=== PATIENT | female | born 1980 | race Caucasian/White ===

== ENCOUNTER 2016-11-19 06:16 | Inpatient (IN) | payer MEDICAID, OTHER ==
[~2016-11-19] VITALS: Ht 170.2 cm; Wt 68.1 kg
[2016-11-19] VITALS (9 sets, daily range): BP systolic 102–125; BP diastolic 56–66; PULSE 75–116; RESP 16–26; TEMP 97.9–99; O2SAT 94–99
[~2016-11-19 06:16] MED LIST: ACAR50TA PO; ATOR40TA16 PO; BLOO1KIT49; INSULIN SYRINGE1 M10 SQ; LEVEMIR SQ; METF1000 PO; ONETTES4; PANT20 PO; SERT-132 PO
--- NOTE | 2016-11-19 06:30 | PD ---
HPI Chief Complaint: Respiratory Symptoms Time Seen by Provider: 06:29 Travel History International Travel<30 days: No Contact w/Intl Traveler<30days: No Traveled to known affect area: No History of Present Illness HPI 36-year-old female came to the emergency room with history of cough, chest pain , shortness of breath for past 2 weeks. Patient says that initially she thought it was a head cold but has not gotten better. Now it hurts to cough. She points to her entire chest. Pain is worse when she coughs or takes a deep breath. Patient was tachycardic and oxygen saturation was in mid 90s. She has history of asthma and history of diabetes. Patient said that her sugar this morning was 400. PFSH Past Medical History Narrative Medical List of her past medical, surgical, social and family history as reviewed from the nursing note. Asthma: Yes Diabetes: Yes Diminished Hearing: No Gastrointestinal Disorders: Yes (HEMMORRHOIDS) Headaches: Yes Respiratory: Yes (ASTHMA) Migraines: Yes : 4 Para: 4 Tubal Ligation: Yes Social History Alcohol Use: Yes Tobacco Use: Yes (3-4 CIGS/DAY) Substance Use: No Allergies-Medications (Allergen,Severity, Reaction): Coded Allergies: No Known Allergies (Verified , 11/19/16) Comments No known drug allergies. Reported Meds & Prescriptions Reported Meds & Active Scripts Active Ventolin Hfa 18 GM Inh (Albuterol Sulfate) 90 Mcg/Act Aer 2 Puff INH Q4H PRN Onetouch Ultra Test Strips (Blood Glucose Test Strips) 1 [place] Alexandria 1 Box .ROUTE TID Insulin Syringe/0.5ML/30G 30G X 1/2" 0.5 ml (Insulin Syringe/Needle U-100) 1 Mis Mis 1 Box SQ DIRECTED Atorvastatin (Atorvastatin Calcium) 40 Mg Tab 40 Mg PO HS Sertraline (Sertraline HCl) 50 Mg Tab 100 Mg PO BID Acarbose 50 Mg Tab 100 Mg PO TIDAC Take with first bite of meal. Metformin (Metformin HCl) 1,000 Mg Tab 1,000 Mg PO BIDPC With meals Blood Glucose System Adi (Blood Glucose Monitoring Suppl) 1 Kit Kit Kit Please provide brand as patients insurance allows Reported Levemir Inj (Insulin Detemir) 1,000 unit/ 10 ML Vial 40 Units SQ AM Do not mix with any other Insulin. Protonix (Pantoprazole Sodium) 20 Mg Tab 40 Mg PO DAILY Narrative Medication List of home medications reviewed from the nursing note. Review of Systems Except as stated in HPI: all other systems reviewed are Neg Physical Exam Narrative GENERAL: Awake, alert, moderate distress, anxious SKIN: Focused skin assessment warm/dry. Multiple scabs on bilateral upper extremity HEAD: Atraumatic. Normocephalic. EYES: Pupils equal and round. No scleral icterus. No injection or drainage. ENT: No nasal bleeding or discharge. Mucous membranes pink and moist. NECK: Trachea midline. No JVD. CARDIOVASCULAR: Regular rate and rhythm. Tachycardia. No murmur appreciated. RESPIRATORY: No accessory muscle use. Clear to auscultation. Breath sounds equal bilaterally. Tachypnea GASTROINTESTINAL: Abdomen soft, non-tender, nondistended. Hepatic and splenic margins not palpable. MUSCULOSKELETAL: No obvious deformities. No clubbing. No cyanosis. No edema. NEUROLOGICAL: Awake and alert. No obvious cranial nerve deficits. Motor grossly within normal limits. Normal speech. PSYCHIATRIC: Appropriate mood and affect; insight and judgment normal. Data Data Last Documented VS Vital Signs Date Time Temp Pulse Resp B/P Pulse Ox O2 Delivery O2 Flow Rate FiO2 11/19/16 09:05 98 16 102/58 94 Nasal Cannula 2 11/19/16 06:38 94 11/19/16 06:17 99.0 Orders Complete Blood Count With Diff (11/19/16 06:32) Basic Metabolic Panel (Bmp) (11/19/16 06:32) D-Dimer (11/19/16 06:32) Influenzae A/B Antigen (11/19/16 06:32) Blood Culture (11/19/16 06:32) Iv Access Insert/Monitor (11/19/16 06:32) Ecg Monitoring (11/19/16 06:32) Oximetry (11/19/16 06:32) Oxygen Administration (11/19/16 06:32) Chest, Single Ap (11/19/16 06:32) Sodium Chloride 0.9% Flush (Ns Flush) (11/19/16 06:45) Albuterol Neb (Albuterol Neb) (11/19/16 06:45) Ketorolac Inj (Toradol Inj) (11/19/16 06:45) Sodium Chlor 0.9% 1000 Ml Inj (Ns 1000 M (11/19/16 06:45) Insulin Human Regular Inj (Novolin R Inj (11/19/16 06:45) B-Type Natriuretic Peptide (11/19/16 07:06) Electrocardiogram (11/19/16 ) Sodium Chlor 0.9% 1000 Ml Inj (Ns 1000 M (11/19/16 09:00) Ceftriaxone Inj (Rocephin Inj) (11/19/16 09:45) Azithromycin Inj (Zithromax Inj) (11/19/16 09:45) Albuterol-Ipratropium Neb (Duoneb Neb) (11/19/16 10:30) Methylprednisolone So Succ Inj (Solumedr (11/19/16 10:30) Lactic Acid (11/19/16 10:32) Sodium Chlor 0.9% 1000 Ml Inj (Ns 1000 M (11/19/16 10:45) Admit Order (Ed Use Only) (11/19/16 10:40) Labs Laboratory Tests Test 11/19/16 06:45 White Blood Count 16.9 TH/MM3 Red Blood Count 4.02 MIL/MM3 Hemoglobin 9.8 GM/DL Hematocrit 31.3 % Mean Corpuscular Volume 77.9 FL Mean Corpuscular Hemoglobin 24.5 PG Mean Corpuscular Hemoglobin 31.4 % Concent Red Cell Distribution Width 17.1 % Platelet Count 438 TH/MM3 Mean Platelet Volume 6.7 FL Neutrophils (%) (Auto) 85.5 % Lymphocytes (%) (Auto) 6.3 % Monocytes (%) (Auto) 6.2 % Eosinophils (%) (Auto) 1.6 % Basophils (%) (Auto) 0.4 % Neutrophils # (Auto) 14.5 TH/MM3 Lymphocytes # (Auto) 1.1 TH/MM3 Monocytes # (Auto) 1.0 TH/MM3 Eosinophils # (Auto) 0.3 TH/MM3 Basophils # (Auto) 0.1 TH/MM3 CBC Comment AUTO DIFF Differential Comment AUTO DIFF CONFIRMED Platelet Estimate NORMAL Platelet Morphology Comment NORMAL D-Dimer Quantitative (PE/DVT) 0.48 MG/L FEU Sodium Level 135 MEQ/L Potassium Level 3.3 MEQ/L Chloride Level 101 MEQ/L Carbon Dioxide Level 23.6 MEQ/L Anion Gap 10 MEQ/L Blood Urea Nitrogen 5 MG/DL Creatinine 0.79 MG/DL Estimat Glomerular Filtration 82 ML/MIN Rate Random Glucose 370 MG/DL Calcium Level 8.8 MG/DL B-Type Natriuretic Peptide 46 PG/ML MDM Medical Decision Making Medical Screen Exam Complete: Yes Emergency Medical Condition: Yes Medical Record Reviewed: Yes Differential Diagnosis Pneumonia, PE, bronchitis, asthma exacerbation Narrative Course 6:38 AM awaiting for the blood test and the chest x-ray. I've ordered 2 albuterol nebulizers. Patient was also given 10 units of insulin subcutaneous. Case will be signed over to the oncoming ER physician. Patient was given Toradol for pain. Procedures EKG Prior to Arrival: No Scripts Albuterol 18 GM Inh (Ventolin Hfa 18 GM Inh)90 Mcg/Act Aer2 Puff INH Q4H PRN ( SHORTNESS OF BREATH) #1 INHALER Ref 0 Prov:Abiodun Gannon MD 11/19/16 Roni Horta MD Nov 19, 2016 06:30
[2016-11-19] MEDS ORDERED: SODIUM CHLOR 0.9% 1000 ML INJ 1,000 ML IV ONE ×3 (06:45→10:45)
[2016-11-19] MEDS ORDERED: INSULIN HUMAN REGULAR 1,000 UNITS/10 ML VIAL SQ ONE (06:45)
[2016-11-19] MEDS ORDERED: KETOROLAC TROMETHAMINE 30 MG/ML (IVP) VIAL IV PUSH ONE (06:45)
[2016-11-19] MEDS ORDERED: LEVEMIR SQ (06:46)
--- NOTE | 2016-11-19 07:00 | RADRPT ---
EXAM DATE/TIME: 11/19/2016 06:52 [facility] COMPARISON: No previous studies available for comparison. INDICATIONS : Shortness of breath. MEDICAL HISTORY : None. SURGICAL HISTORY : None. ENCOUNTER: Initial ACUITY: 1 day PAIN SCORE: 0/10 LOCATION: Bilateral chest FINDINGS: Mild interstitial opacities are seen of both mid and lower lungs. Very small, bilateral pleural effus ions are possible. No confluent or dense consolidation seen. No pneumothorax. Heart size upper limits of normal to mildly enlarged. CONCLUSION: Findings most typical of mild failure. Moises Gary MD on November 19, 2016 at 6:58 Board Certified Radiologist. This report was verified electronically.
[2016-11-19 07:08] LABS: AUTOMATED NEUTROPHIL # 14.5 TH/MM3 (1.8-7.7); BASOPHIL # 0.1 TH/MM3 (0-0.2); BASOPHIL % 0.4 % (0.0-2.0); EOSINOPHIL # 0.3 TH/MM3 (0-0.4); EOSINOPHIL % 1.6 % (0.0-4.0); HEMATOCRIT 31.3 % (35.0-46.0); LYMPH % 6.3 % (9.0-44.0); LYMPHOCYTE # 1.1 TH/MM3 (1.0-4.8); MEAN CELL VOLUME 77.9 FL (80.0-100.0); MEAN CORPUSCULAR HEMOGLOBIN 24.5 PG (27.0-34.0); MEAN CORPUSCULAR HGB CONC 31.4 % (32.0-36.0); MONO % 6.2 % (0.0-8.0); NEUT % 85.5 % (16.0-70.0); PLATELET COUNT 438 TH/MM3 (150-450); RED BLOOD COUNT 4.02 MIL/MM3 (4.00-5.30); RED CELL DISTRIBUTION WIDTH 17.1 % (11.6-17.2); WHITE BLOOD COUNT 16.9 TH/MM3 (4.0-11.0)
[2016-11-19 07:09] LABS: HEMO FLAGS AUTO DIFF
[2016-11-19] MEDS: RESP: ALBUTEROL 2.5 MG/3 ML NEB (SCH) INH ×2 (07:12→07:13)
--- NOTE | 2016-11-19 07:16 | PD ---
Physical Exam Date Seen by Provider: Nov 19, 2016 Time Seen by Provider: 07:14 Narrative The patient is a 36-year-old female was initially evaluated by the previous physician, Dr. Horta. Please refer to the initial history, physical, diagnostic evaluation, and treatment modality plan. The patient was signed out at 7 AM with laboratory evaluation pending. Data Data Last Documented VS Vital Signs Date Time Temp Pulse Resp B/P Pulse Ox O2 Delivery O2 Flow Rate FiO2 11/19/16 09:05 98 16 102/58 94 Nasal Cannula 2 11/19/16 06:38 94 11/19/16 06:17 99.0 Orders Complete Blood Count With Diff (11/19/16 06:32) Basic Metabolic Panel (Bmp) (11/19/16 06:32) D-Dimer (11/19/16 06:32) Influenzae A/B Antigen (11/19/16 06:32) Blood Culture (11/19/16 06:32) Iv Access Insert/Monitor (11/19/16 06:32) Ecg Monitoring (11/19/16 06:32) Oximetry (11/19/16 06:32) Oxygen Administration (11/19/16 06:32) Chest, Single Ap (11/19/16 06:32) Sodium Chloride 0.9% Flush (Ns Flush) (11/19/16 06:45) Albuterol Neb (Albuterol Neb) (11/19/16 06:45) Ketorolac Inj (Toradol Inj) (11/19/16 06:45) Sodium Chlor 0.9% 1000 Ml Inj (Ns 1000 M (11/19/16 06:45) Insulin Human Regular Inj (Novolin R Inj (11/19/16 06:45) B-Type Natriuretic Peptide (11/19/16 07:06) Electrocardiogram (11/19/16 ) Sodium Chlor 0.9% 1000 Ml Inj (Ns 1000 M (11/19/16 09:00) Ceftriaxone Inj (Rocephin Inj) (11/19/16 09:45) Azithromycin Inj (Zithromax Inj) (11/19/16 09:45) Albuterol-Ipratropium Neb (Duoneb Neb) (11/19/16 10:30) Methylprednisolone So Succ Inj (Solumedr (11/19/16 10:30) Lactic Acid (11/19/16 10:32) Sodium Chlor 0.9% 1000 Ml Inj (Ns 1000 M (11/19/16 10:45) Admit Order (Ed Use Only) (11/19/16 10:40) Labs Laboratory Tests Test 11/19/16 06:45 White Blood Count 16.9 TH/MM3 Red Blood Count 4.02 MIL/MM3 Hemoglobin 9.8 GM/DL Hematocrit 31.3 % Mean Corpuscular Volume 77.9 FL Mean Corpuscular Hemoglobin 24.5 PG Mean Corpuscular Hemoglobin 31.4 % Concent Red Cell Distribution Width 17.1 % Platelet Count 438 TH/MM3 Mean Platelet Volume 6.7 FL Neutrophils (%) (Auto) 85.5 % Lymphocytes (%) (Auto) 6.3 % Monocytes (%) (Auto) 6.2 % Eosinophils (%) (Auto) 1.6 % Basophils (%) (Auto) 0.4 % Neutrophils # (Auto) 14.5 TH/MM3 Lymphocytes # (Auto) 1.1 TH/MM3 Monocytes # (Auto) 1.0 TH/MM3 Eosinophils # (Auto) 0.3 TH/MM3 Basophils # (Auto) 0.1 TH/MM3 CBC Comment AUTO DIFF Differential Comment AUTO DIFF CONFIRMED Platelet Estimate NORMAL Platelet Morphology Comment NORMAL D-Dimer Quantitative (PE/DVT) 0.48 MG/L FEU Sodium Level 135 MEQ/L Potassium Level 3.3 MEQ/L Chloride Level 101 MEQ/L Carbon Dioxide Level 23.6 MEQ/L Anion Gap 10 MEQ/L Blood Urea Nitrogen 5 MG/DL Creatinine 0.79 MG/DL Estimat Glomerular Filtration 82 ML/MIN Rate Random Glucose 370 MG/DL Calcium Level 8.8 MG/DL B-Type Natriuretic Peptide 46 PG/ML [facility] Medical Record Reviewed: Yes Supervised Visit with HONORIO: No Interpretation(s) Last Impressions Chest X-Ray 11/19/16 0632 Signed Impressions: Service Date/Time: Saturday, November 19, 2016 06:52 - CONCLUSION: Findings most typical of mild failure. Moises Gary MD EKG reveals sinus tachycardia with a heart rate of 105. Short LA interval of 112 ms. Nonspecific T-wave changes. Questionable delta wave. Laboratory Tests Test 11/19/16 06:45 White Blood Count 16.9 TH/MM3 Red Blood Count 4.02 MIL/MM3 Hemoglobin 9.8 GM/DL Hematocrit 31.3 % Mean Corpuscular Volume 77.9 FL Mean Corpuscular Hemoglobin 24.5 PG Mean Corpuscular Hemoglobin 31.4 % Concent Red Cell Distribution Width 17.1 % Platelet Count 438 TH/MM3 Mean Platelet Volume 6.7 FL Neutrophils (%) (Auto) 85.5 % Lymphocytes (%) (Auto) 6.3 % Monocytes (%) (Auto) 6.2 % Eosinophils (%) (Auto) 1.6 % Basophils (%) (Auto) 0.4 % Neutrophils # (Auto) 14.5 TH/MM3 Lymphocytes # (Auto) 1.1 TH/MM3 Monocytes # (Auto) 1.0 TH/MM3 Eosinophils # (Auto) 0.3 TH/MM3 Basophils # (Auto) 0.1 TH/MM3 CBC Comment AUTO DIFF Differential Comment AUTO DIFF CONFIRMED Platelet Estimate NORMAL Platelet Morphology Comment NORMAL D-Dimer Quantitative (PE/DVT) 0.48 MG/L FEU Sodium Level 135 MEQ/L Potassium Level 3.3 MEQ/L Chloride Level 101 MEQ/L Carbon Dioxide Level 23.6 MEQ/L Anion Gap 10 MEQ/L Blood Urea Nitrogen 5 MG/DL Creatinine 0.79 MG/DL Estimat Glomerular Filtration 82 ML/MIN Rate Random Glucose 370 MG/DL Calcium Level 8.8 MG/DL B-Type Natriuretic Peptide 46 PG/ML Date/Time Procedure Status Source Growth 11/19/16 06:45 Aerobic Blood Culture Received Blood Peripheral Pending 11/19/16 06:45 Anaerobic Blood Culture Received Blood Peripheral Pending 11/19/16 06:45 Aerobic Blood Culture Received Blood Peripheral Pending 11/19/16 06:45 Anaerobic Blood Culture Received Blood Peripheral Pending 11/19/16 07:49 Influenza Types A,B Antigen ([place]) - Final Complete Nasal Aspirate NEGATIVE FOR FLU A AND B ANTIGEN.... Differential Diagnosis Differential diagnosis includes congestive heart failure, atypical pneumonia, pneumonia, bronchitis, pulmonary embolism, cardiomyopathy, asthma, reactive airway disease. Narrative Course The patient was initially evaluated by the previous physician, Dr. Horta. Please refer to the initial history, physical, diagnostic evaluation, and treatment modality plan. The patient was signed out at 7 AM with laboratory evaluation pending. D-dimer 0.48, therefore, no indication for CT pulmonary angiogram. White count was elevated at 16.9. BNP is 49. Glucose was elevated , patient was administered IV fluids and insulin by the previous physician. Chest x-ray is read by radiology, questionable pulmonary edema, however, could also be atypical pneumonia. Repeat blood glucose was 191. The patient be discharged home on Zithromax and albuterol inhaler to cover for atypical pneumonia, possible mycoplasma, with bilateral infiltrates. The patient has no hypoxia, her heart rate came down into the 90s with IV fluids. The patient was monitored in the emergency department, at 10:15 AM she was reevaluated. The patient had increasing wheezing, especially in the left aspect of her lungs, oxygen saturation was 87% on room air. The patient has a history of reactive airway disease and appears to have atypical pneumonia. As the patient is hypoxic and has once again increased work of breathing, patient will be admitted. The patient was administered Solu-Medrol 125 mg intravenously and duo nebs. The patient does not currently have a primary physician, therefore, the on-call medical service was paged for admission. Sepsis Criteria SIRS Criteria (2 or more): Heart rate over 90, WBC > 19577, < 4000 or > 10% bands Sepsis Criteria (SIRS+source): Infect source susp/known Criteria Outcome: Meets sepsis criteria Physician Communication Physician Communication The on-call medical service was paged for admission. I discussed the patient with Dr. Buchanan who agrees with admission. Diagnosis Primary Impression: Atypical pneumonia Additional Impressions: Reactive airway disease Qualified Code: J45.901 - Reactive airway disease, unspecified asthma severity , with acute exacerbation Hypoxia Admitting Information Admitting Physician Requests: Admit Additional Instruction: Medications as directed. Follow-up with her primary physician. Return if symptoms worsen or progress, after symptoms worsen or progress, he may need admission. Scripts Albuterol 18 GM Inh (Ventolin Hfa 18 GM Inh)90 Mcg/Act Aer2 Puff INH Q4H PRN ( SHORTNESS OF BREATH) #1 INHALER Ref 0 Prov:Abiodun Gannon MD 11/19/16 Azithromycin (Zithromax Z-Adi)250 Mg [id number] Mg PO DIRECTED #1 DSPK Ref 0 500 MG (2 tabs) day 1, then 1 tab days 2-5. Prov:Abiodun Gannon MD 11/19/16 Condition: Stable Abiodun Gannon MD Nov 19, 2016 07:16
[2016-11-19 07:48] LABS: PLATELET ESTIMATE SMEAR NORMAL (NORMAL); PLATELET MORPHOLOGY NORMAL (NORMAL); SCAN/DIFF AUTO DIFF CONFIRMED
[2016-11-19 08:24] LABS: BICARBONATE 23.6 MEQ/L (21.0-32.0); POTASSIUM 3.3 MEQ/L (3.5-5.1)
[2016-11-19] MEDS ORDERED: VENTAER INH (09:32)
[2016-11-19] MEDS ORDERED: ZITHTAB PO (09:32)
[2016-11-19] MEDS ORDERED: AZITHROMYCIN INJ 500 MG in SODIUM CHLOR 0.9% 250 ML INJ 250 ML IV ONE (09:45)
[2016-11-19] MEDS ORDERED: cefTRIAXone INJ 1,000 MG in SODIUM CHLORIDE 0.9% INJ 100 ML IV ONE (09:45)
--- NOTE | 2016-11-19 10:04 | EKG ---
Date Performed: 11/19/2016 Time Performed: 07:50:59 PTAGE: 36 years EKG: SINUS TACHYCARDIA WITH SHORT NE INTERVAL NONSPECIFIC T-WAVE ABNORMALITY ABNORMAL RHYTHM ECG NO PREVIOUS TRACING DOCTOR: Mani Caraballo Interpretating Date/Time 11/19/2016 10:04:19
[2016-11-19] MEDS ORDERED: RESP: ALBUTEROL 2.5 MG/IPRATROPIUM 0.5 MG NEB (SCH) NEB ONE (10:30)
[2016-11-19] MEDS ORDERED: methylPREDNISolone SOD SUCC 125 MG/2 ML VIAL IV PUSH ONE (10:30)
--- NOTE | 2016-11-19 11:06 | HHI.HP ---
HPI Service Family Medicine Team A Amaris Carreon Primary Care Physician Unknown Admission Diagnosis atypical pneumonia, reactive airway disease, sepsis, hypoxia Diagnoses: International Travel<30 Days: No Contact w/Intl Traveler<30days: No Known Affected Area: No History of Present Illness This is a 36-year-old male with a history of reactive airway disease who presented to [facility] with a chief complaint of cough, chest pain, shortness of breath for the past 2 weeks. Patient state she thought she had a cold, her sx were cough and congestion. Over the past few days she felt she was getting tired half way through the day. This morning she was coughing significantly and states she couldn't breath and was having some bilat rib pain from the cough. She states she felt like she couldn't get any air in. She has asthma but states its exercised induced. She hasn't had a an issue with her asthma since she was a child. Her medical hx of DM and takes metformin 1,000 mg PO BID and insulin 40 units in the am. She tests her sugars and states her fasting is 400s and post prandial I the 500s. She has been a type 2 diabetic after diabetes in . She has an machine set up technician, next appointment December 13. She has been on 35 units but since she her numbers have been running high, she increased it to 40 units. She has a PCP but has not yet established with her, appointment is in January. In he ER the patient was found to be tachycardic, have low oxygen saturations, elevated serum glucose, and leukocytosis. She was given some IV fluid hydration , d-dimer negative, and was going to be discharged on azithromycin. At that time the patient continued to have an oxygen saturation in the 80s, so it was decided that he would be admitted for overnight observation and management. ( Guerda Monreal MD R3) Review of Systems Constitutional: COMPLAINS OF: Night Sweats, DENIES: Fever, Chills Eyes: DENIES: Blurred vision, Diplopia Ears, nose, mouth, throat: DENIES: Tinnitus, Hearing loss Respiratory: COMPLAINS OF: Apneas, Cough, Wheezing, Sputum production, Shortness of breath Cardiovascular: DENIES: Chest pain, Palpitations Gastrointestinal: DENIES: Abdominal pain, Diarrhea, Nausea, Vomiting Musculoskeletal: DENIES: Joint pain, Muscle aches Neurologic: DENIES: Abnormal gait, Headache Psychiatric: DENIES: Anxiety, Confusion, Mood changes (Guerda Monreal MD R3) Past Family Social History Past Medical History Exercise induced asthma DM HLD Depression & Anxiety Past Surgical History Tubal ligation Felisha Reported Medications Ventolin Hfa 18 GM Inh (Albuterol Sulfate) 90 Mcg/Act Aer 2 Puff INH Q4H PRN Insulin Syringe/0.5ML/30G 30G X 1/2" 0.5 ml (Insulin Syringe/Needle U-100) 1 Mis Mis 1 Box SQ DIRECTED Atorvastatin (Atorvastatin Calcium) 40 Mg Tab 40 Mg PO HS Sertraline (Sertraline HCl) 50 Mg Tab 100 Mg PO BID Acarbose 50 Mg Tab 100 Mg PO TIDAC Take with first bite of meal. Metformin (Metformin HCl) 1,000 Mg Tab 1,000 Mg PO BIDPC With meals Levemir Inj (Insulin Detemir) 1,000 unit/ 10 ML Vial 40 Units SQ AM Do not mix with any other Insulin. 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 SKIN: multiple healed scabs, upper and lower extremities bilaterally HEAD: Atraumatic. Normocephalic. No temporal or scalp tenderness. EYES: Pupils equal round and reactive. Extraocular motions intact. No scleral icterus. No injection or drainage. ENT: Nose without bleeding, purulent drainage or septal hematoma. Throat without erythema, tonsillar hypertrophy or exudate. Uvula midline. Airway patent. NECK: Trachea midline. No JVD or lymphadenopathy. Supple, nontender, no meningeal signs. CARDIOVASCULAR: Regular rate and rhythm without murmurs, gallops, or rubs. RESPIRATORY: Relatively clear to auscultation with good air entry bilaterally, no adventitious sounds. GASTROINTESTINAL: Abdomen soft, non-tender, nondistended. No hepato-splenomegaly , or palpable masses. No guarding. MUSCULOSKELETAL: Extremities without clubbing, cyanosis, or edema. No joint tenderness, effusion, or edema noted. No calf tenderness. NEUROLOGICAL: Awake and alert. Motor and sensory grossly within normal limits. Normal speech. Laboratory Laboratory Tests Test 11/19/16 06:45 White Blood Count 16.9 Red Blood Count 4.02 Hemoglobin 9.8 Hematocrit 31.3 Mean Corpuscular Volume 77.9 Mean Corpuscular Hemoglobin 24.5 Mean Corpuscular Hemoglobin 31.4 Concent Red Cell Distribution Width 17.1 Platelet Count 438 Mean Platelet Volume 6.7 Neutrophils (%) (Auto) 85.5 Lymphocytes (%) (Auto) 6.3 Monocytes (%) (Auto) 6.2 Eosinophils (%) (Auto) 1.6 Basophils (%) (Auto) 0.4 Neutrophils # (Auto) 14.5 Lymphocytes # (Auto) 1.1 Monocytes # (Auto) 1.0 Eosinophils # (Auto) 0.3 Basophils # (Auto) 0.1 CBC Comment AUTO DIFF Differential Comment AUTO DIFF CONFIRMED Platelet Estimate NORMAL Platelet Morphology Comment NORMAL D-Dimer Quantitative (PE/DVT) 0.48 Sodium Level 135 Potassium Level 3.3 Chloride Level 101 Carbon Dioxide Level 23.6 Anion Gap 10 Blood Urea Nitrogen 5 Creatinine 0.79 Estimat Glomerular Filtration 82 Rate Random Glucose 370 Calcium Level 8.8 B-Type Natriuretic Peptide 46 Date/Time Procedure Status Source Growth 11/19/16 07:49 Influenza Types A,B Antigen (ALINA) - Final Complete Nasal Aspirate NEGATIVE FOR FLU A AND B ANTIGEN.... 11/19/16 06:45 Aerobic Blood Culture Received Blood Peripheral Pending 11/19/16 06:45 Anaerobic Blood Culture Received Blood Peripheral Pending (Guerda Monreal MD R3) Result Diagram: 11/19/16 0645 11/19/16 0645 Imaging Last Impressions Chest X-Ray 11/19/16 0632 Signed Impressions: Service Date/Time: Saturday, November 19, 2016 06:52 - CONCLUSION: Findings most typical of mild failure. Moises Gary MD (Guerda Monreal MD R3) Assessment and Plan Assessment and Plan 36-year-old male with medical history significant for reactive airway disease admitted for pneumonia and worsening respiratory status. Code Status Full Discussed Condition With ER doc Drs. Glez and Dewayne (Guerda Monreal MD R3) Attending Attestation THIS CASE WAS DISCUSSED WITH THE RESIDENT PHYSICIANS. I HAVE REVIEWED THE RECORD AND AGREE WITH THE ABOVE NOTE AND PLAN OF CARE WAS DISCUSSED. I HAVE AUTHORIZED THE ORDER FOR ADMISSION TO AN IN-PATIENT STATUS. (Marvin Glez MD) Problem List: (1) Sepsis Status: Acute Plan: Patient on admission with tachycardia and leukocytosis, source is likely lung. - Blood cultures obtained and pending - Flu negative - The patient needs flu and pneumococcal vaccine on discharge given her underlying reactive airway disease - Was started on azithromycin and Rocephin for community-acquired pneumonia, we' ll continue this (2) Reactive airway disease Status: Chronic Plan: Exercise induced asthma. Currently breathing comfortably on nasal canula. Lung exam reassuring. - Status post 125 mg of IV Solu-Medrol - Prednisone 50 mg PO daily starting tomorrow, protonix for GI protection - albuterol, duonebs alternating (3) Tobacco abuse Status: Chronic Plan: Counseled with patient - nicotine patch (4) DM2 (diabetes mellitus, type 2) Status: Chronic Plan: Does not appear well controlled. Has machine set up technician she follows with in [place] in November. - Hold home metformin while in hospital - continue acarbose TID - Medium dose sliding scale - Levemir 10 units HS, may increase - Diabetic diet - A1C ordered and pending - currently on statin, current smoker, would likely benefit from ASA (5) PNA (pneumonia) Status: Acute Plan: - Currenly on Rocephin & Azithromycin 11/19, likely d/c on 5 days of azithromycin - urine legionella (6) HLD (hyperlipidemia) Status: Chronic Plan: - Continue statin (7) Depression Status: Chronic Plan: - Continue home sertraline (8) fen Status: Acute Plan: Fluids: HLIV, encourage PO intake, s/p 3L in ER Electrolytes: K 3.3, repleted, repeat BMP tomorrow Nutrition: diabetic diet DVT prophy: ambulatory, bilat SCDs GI prophylaxis: Protonix while on steroids (Guerda Monreal MD R3) Physician Certification 2 Midnight Certification Type: Admission for Inpatient Services Order for Inpatient Services The services are ordered in accordance with Medicare regulations or non- Medicare payer requirements, as applicable. In the case of services not specified as inpatient-only, they are appropriately provided as inpatient services in accordance with the 2-midnight benchmark. Estimated LOS (days): 2 days is the estimated time the patient will need to remain in the hospital, assuming treatment plan goals are met and no additional complications. Post-Hospital Plan: Home (Guerda Monreal MD R3) Problem Qualifiers (1) Reactive airway disease: Qualified Code: J45.901 - Reactive airway disease, unspecified asthma severity , with acute exacerbation Guerda Monreal MD R3 Nov 19, 2016 11:06 Marvin Glez MD Nov 19, 2016 15:07
[2016-11-19] MEDS ORDERED: NICOTINE 14 MG/24 HR PATCH T-DERMAL ONE (12:15)
[2016-11-19] MEDS ORDERED: GLUCAGON 1 MG/ML VIAL OTHER PRN (12:30)
[2016-11-19] MEDS ORDERED: DEXTROSE 50% IN WATER 50 ML VIAL(D50) IV PUSH PRN (12:30)
[2016-11-19] MEDS ORDERED: POTASSIUM CHLORIDE 10 MEQ CONTROLLED RELEASE TAB PO ONE (13:00)
--- NOTE | 2016-11-19 15:07 | HHI.HP ---
[facility] Service Family Medicine Primary Care Physician Unknown Admission Diagnosis atypical pneumonia, reactive airway disease, sepsis, hypoxia Diagnoses: (1) Sepsis (2) Reactive airway disease (3) Tobacco abuse (4) DM2 (diabetes mellitus, type 2) (5) PNA (pneumonia) (6) HLD (hyperlipidemia) (7) Depression (8) fen International Travel<30 Days: No Contact w/Intl Traveler<30days: No Known Affected Area: No History of Present Illness 36-year-old female presenting to the emergency department with chief complaint of productive cough with chest pain and shortness of breath for the last 2 weeks. She states that she has a history of reactive airway disease and that she has felt generalized malaise for the last 2 weeks associated with a cough that has gradually been getting worse. The cough has recently become productive of a yellowish sputum and she began having difficulty catching her breath. She also has noticed generalized malaise and fatigue that has been progressively getting worse. She denies any significant fevers or chills, she denies any palpitations, she denies any nausea or vomiting. She does have a history of type 2 diabetes and has noticed that her blood sugars have also been out of control over the last 2 weeks, stating that she has noticed some in the 400s and 500s over the last 5 days. She denies significant polyuria or polydipsia. She denies any tremulousness. She denies any nausea or vomiting, she denies any altered mental status Review of Systems Constitutional: COMPLAINS OF: Fatigue, Chills, DENIES: Fever, Dizziness Respiratory: COMPLAINS OF: Cough, Wheezing, Sputum production, Shortness of breath, DENIES: Hemoptysis Cardiovascular: COMPLAINS OF: Chest pain, Dyspnea on Exertion, DENIES: Palpitations, Syncope, Lower Extremity Edema Gastrointestinal: DENIES: Abdominal pain, Constipation, Diarrhea, Nausea, Vomiting, Difficulty Swallowing Past Family Social History Past Medical History Exercise induced asthma DM HLD Depression & Anxiety Past Surgical History Tubal ligation Novasure Allergies: Coded Allergies: No Known Allergies (Verified , 11/19/16) Family History Mother with COPD, sleep apnea, depression, osteoperosis Father alive and healthy Has 4 children, 3 healthy (one daughter with asthma and sleep apnea) one passed at 6 weeks of life Social History No alcohol or drug use 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 SKIN: multiple healed scabs, upper and lower extremities bilaterally HEAD: Atraumatic. Normocephalic. NECK: Trachea midline. No JVD or lymphadenopathy. CARDIOVASCULAR: Regular rate and rhythm without murmurs, gallops, or rubs. RESPIRATORY: Coarse breath sounds with scattered expiratory wheezes, no overt rhonchi or crackles GASTROINTESTINAL: Abdomen soft, non-tender, nondistended. MUSCULOSKELETAL: Extremities without clubbing, cyanosis, or edema. NEUROLOGICAL: Awake and alert. Motor and sensory grossly within normal limits. Normal speech. Laboratory Laboratory Tests Test 11/19/16 11/19/16 06:45 12:28 White Blood Count 16.9 Red Blood Count 4.02 Hemoglobin 9.8 Hematocrit 31.3 Mean Corpuscular Volume 77.9 Mean Corpuscular Hemoglobin 24.5 Mean Corpuscular Hemoglobin 31.4 Concent Red Cell Distribution Width 17.1 Platelet Count 438 Mean Platelet Volume 6.7 Neutrophils (%) (Auto) 85.5 Lymphocytes (%) (Auto) 6.3 Monocytes (%) (Auto) 6.2 Eosinophils (%) (Auto) 1.6 Basophils (%) (Auto) 0.4 Neutrophils # (Auto) 14.5 Lymphocytes # (Auto) 1.1 Monocytes # (Auto) 1.0 Eosinophils # (Auto) 0.3 Basophils # (Auto) 0.1 CBC Comment AUTO DIFF Differential Comment AUTO DIFF CONFIRMED Platelet Estimate NORMAL Platelet Morphology Comment NORMAL D-Dimer Quantitative (PE/DVT) 0.48 Sodium Level 135 Potassium Level 3.3 Chloride Level 101 Carbon Dioxide Level 23.6 Anion Gap 10 Blood Urea Nitrogen 5 Creatinine 0.79 Estimat Glomerular Filtration 82 Rate Random Glucose 370 Calcium Level 8.8 B-Type Natriuretic Peptide 46 Lactic Acid Level 2.6 Date/Time Procedure Status Source Growth 11/19/16 07:49 Influenza Types A,B Antigen (ALINA) - Final Complete Nasal Aspirate NEGATIVE FOR FLU A AND B ANTIGEN.... 11/19/16 06:45 Aerobic Blood Culture Received Blood Peripheral Pending 11/19/16 06:45 Anaerobic Blood Culture Received Blood Peripheral Pending Result Diagram: 11/19/1645 11/19/1645 Imaging Last Impressions Chest X-Ray 11/19/1632 Signed Impressions: Service Date/Time: Saturday, November 19, 2016 06:52 - CONCLUSION: Findings most typical of mild failure. Moises Gary MD Assessment and Plan Assessment and Plan 36-year-old male with medical history significant for reactive airway disease admitted for pneumonia and worsening respiratory status. Problem List: (1) Sepsis Status: Acute Plan: Patient on admission with tachycardia and leukocytosis, source is likely lung. - Blood cultures obtained and pending - Flu negative - The patient needs flu and pneumococcal vaccine on discharge given her underlying reactive airway disease - Was started on azithromycin and Rocephin for community-acquired pneumonia, we' ll continue this (2) PNA (pneumonia) Status: Acute Plan: - Currenly on Rocephin & Azithromycin 11/19, likely d/c on 5 days of azithromycin - urine legionella (3) Reactive airway disease Status: Chronic Plan: Exercise induced asthma. Currently breathing comfortably on nasal canula. Lung exam reassuring. - Status post 125 mg of IV Solu-Medrol - Prednisone 50 mg PO daily starting tomorrow, protonix for GI protection - albuterol, duonebs alternating (4) Tobacco abuse Status: Chronic Plan: Counseled with patient - nicotine patch (5) DM2 (diabetes mellitus, type 2) Status: Chronic Plan: Does not appear well controlled. Has physician aide she follows with in [place] in November. - Hold home metformin while in hospital - continue acarbose TID - Medium dose sliding scale - Levemir 10 units HS, may increase - Diabetic diet - A1C ordered and pending - currently on statin, current smoker, would likely benefit from ASA (6) HLD (hyperlipidemia) Status: Chronic Plan: - Continue statin (7) Depression Status: Chronic Plan: - Continue home sertraline (8) fen Status: Acute Plan: Fluids: HLIV, encourage PO intake, s/p 3L in ER Electrolytes: K 3.3, repleted, repeat BMP tomorrow Nutrition: diabetic diet DVT prophy: ambulatory, bilat SCDs GI prophylaxis: Protonix while on steroids Physician Certification 2 Midnight Certification Type: Admission for Inpatient Services Order for Inpatient Services The services are ordered in accordance with Medicare regulations or non- Medicare payer requirements, as applicable. In the case of services not specified as inpatient-only, they are appropriately provided as inpatient services in accordance with the 2-midnight benchmark. Estimated LOS (days): 2 2 days is the estimated time the patient will need to remain in the hospital, assuming treatment plan goals are met and no additional complications. Post-Hospital Plan: Home Problem Qualifiers (1) Reactive airway disease: Qualified Code: J45.901 - Reactive airway disease, unspecified asthma severity , with acute exacerbation Marvin Glez MD Nov 19, 2016 15:07
[2016-11-19] MEDS: RESP: ALBUTEROL 2.5 MG/IPRATROPIUM 0.5 MG NEB (SCH) NEB ×2 (16:07→21:43)
[2016-11-19] MEDS: INSULIN ASPART SUPPLEMENTAL SCALE SQ SCH ×2 (16:12→20:31)
[2016-11-19] MEDS ORDERED: ACARBOSE 100 MG PO SCH (17:00)
[2016-11-19] MEDS ORDERED: predniSONE 20 MG TAB PO SCH (20:00)
[2016-11-19] MEDS: SERTRALINE HCL 100 MG TAB PO SCH (20:31)
[2016-11-19] MEDS: INSULIN DETEMIR 100 UNITS/ML VIAL SQ SCH (20:31)
[2016-11-19] MEDS: ATORVASTATIN 40 MG TAB PO SCH (20:31)
[2016-11-19] MEDS: ACETAMINOPHEN 325 MG TAB PO PRN (22:32)
[2016-11-20] VITALS (8 sets, daily range): BP systolic 97–126; BP diastolic 50–62; PULSE 74–95; RESP 16–25; TEMP 98–99.6; O2SAT 92–98
[2016-11-20] MEDS: ACETAMINOPHEN 325 MG TAB PO PRN ×3 (02:32→20:26)
[2016-11-20] MEDS: RESP: ALBUTEROL 2.5 MG/IPRATROPIUM 0.5 MG NEB (SCH) NEB ×4 (05:42→21:14)
[2016-11-20] MEDS: INSULIN ASPART SUPPLEMENTAL SCALE SQ SCH ×4 (05:46→20:33)
--- NOTE | 2016-11-20 06:35 | HHI.FPPN ---
Subjective Remarks Patient seen and examined this morning. Her vitals are stable. She did require 2 L of nasal cannula overnight. Some intermittent tachypnea. She states without the oxygen by nasal canula she feels short of breath and cannot walk to the bathroom. She states she feels like she can speak in complete sentences without getting short of breath and her cough has significant improved. Two accu checks recorded in EMR- 407, 191. (Guerda Monreal MD R3) Objective Vitals Vital Signs Date Time Temp Pulse Resp B/P Pulse Ox O2 Delivery O2 Flow Rate FiO2 11/20/16 00:00 99.3 76 25 111/54 97 11/19/16 21:47 98 Nasal Cannula 2.00 11/19/16 20:00 98.9 75 24 115/56 96 11/19/16 15:45 97.9 90 26 125/59 95 11/19/16 12:33 98.7 99 20 110/60 99 Nasal Cannula 2 11/19/16 09:05 98 16 102/58 94 Nasal Cannula 2 11/19/16 07:02 98 Nasal Cannula 2.00 11/19/16 07:00 94 16 115/60 99 Nasal Cannula 2 11/19/16 06:38 104 18 115/60 98 Nasal Cannula 2 11/19/16 06:38 Room Air 94 11/19/16 06:38 94 Nasal Cannula 2 I/O 11/19/16 11/19/16 11/19/16 11/20/16 11/20/16 11/20/16 07:00 15:00 23:00 07:00 15:00 23:00 Intake Total 1320 ml Balance 1320 ml Intake Oral 1320 ml # Voids 5 # Bowel Movements 2 (Guerda Monreal MD R3) Result Diagram: 11/19/16 0645 11/19/16 0645 Imaging Last Impressions Chest X-Ray 11/19/16 0632 Signed Impressions: Service Date/Time: Saturday, November 19, 2016 06:52 - CONCLUSION: Findings most typical of mild failure. Moises Gary MD Objective Remarks GENERAL: well appearing, nad SKIN: Warm and dry.multiple healed scabs upper and lower extremities. HEAD: Normocephalic. EYES: No scleral icterus. No injection or drainage. NECK: Supple, trachea midline. No JVD or lymphadenopathy. CARDIOVASCULAR: Regular rate and rhythm without murmurs, gallops, or rubs. RESPIRATORY: Breath sounds equal bilaterally. No accessory muscle use. GASTROINTESTINAL: Abdomen soft, non-tender, nondistended. MUSCULOSKELETAL: No cyanosis, or edema. BACK: Nontender without obvious deformity. (Guerda Monreal MD R3) A/P Assessment and Plan 36-year-old male with medical history significant for reactive airway disease admitted for pneumonia and worsening respiratory status. Discharge Planning D/C pending clinical improvement, likely tomorrow. discussed with Drs. Glez and Lauri (Guerda Monreal MD R3) Attending Attestation Patient examined and case discussed with resident physicians I have read the above note and agree with the assessment/plan as discussed with me I was involved in all medical decision making for this patient Marvin Glez M.D. (Marvin Glez MD) Problem List: (1) Sepsis Status: Acute Plan: Patient on admission with tachycardia and leukocytosis, source is likely lung. - Blood cultures obtained and pending - Flu negative - The patient needs flu and pneumococcal vaccine on discharge given her underlying reactive airway disease - Azithromycin and Rocephin for community-acquired pneumonia (11/19- (2) PNA (pneumonia) Status: Acute Plan: - Currenly on Rocephin & Azithromycin 11/19, likely d/c on 5 days of azithromycin - urine legionella (3) Reactive airway disease Status: Chronic Plan: Currently breathing comfortably on nasal canula. Lung exam reassuring. - Prednisone 50 mg PO daily protonix for GI protection - albuterol, duonebs alternating - incentive spirometer (4) Tobacco abuse Status: Chronic Plan: Counseled with patient - nicotine patch (5) DM2 (diabetes mellitus, type 2) Status: Chronic Plan: Does not appear well controlled. Has student life advisor she follows with in [place] in November. - Hold home metformin while in hospital - continue acarbose TID - Medium dose sliding scale - Levemir 10 units HS, may increase - Diabetic diet - A1C ordered and pending - currently on statin, current smoker, would likely benefit from ASA (added) (6) HLD (hyperlipidemia) Status: Chronic Plan: - Continue statin (7) Depression Status: Chronic Plan: - Continue home sertraline (8) fen Status: Acute Plan: Fluids: HLIV, encourage PO intake, s/p 3L in ER Electrolytes: K 3.3, repleted, repeat BMP pending Nutrition: diabetic diet DVT prophy: ambulatory, bilat SCDs GI prophylaxis: Protonix while on steroids (Guerda Monreal MD R3) Problem Qualifiers (1) Reactive airway disease: Qualified Code: J45.901 - Reactive airway disease, unspecified asthma severity , with acute exacerbation Guerda Monreal MD R3 Nov 20, 2016 06:35 Marvin Glez MD Nov 20, 2016 11:01
[2016-11-20 08:13] LABS: AUTOMATED NEUTROPHIL # 17.3 TH/MM3 (1.8-7.7); BASOPHIL % 0.1 % (0.0-2.0); HEMO FLAGS DIFF FINAL; MEAN CELL VOLUME 77.9 FL (80.0-100.0); MEAN CORPUSCULAR HGB CONC 32.1 % (32.0-36.0); MONO % 6.4 % (0.0-8.0); NEUT % 88.5 % (16.0-70.0); PLATELET COUNT 458 TH/MM3 (150-450); RED BLOOD COUNT 3.85 MIL/MM3 (4.00-5.30); RED CELL DISTRIBUTION WIDTH 17.5 % (11.6-17.2); WHITE BLOOD COUNT 19.6 TH/MM3 (4.0-11.0)
[2016-11-20 08:39] LABS: BICARBONATE 24.9 MEQ/L (21.0-32.0)
[2016-11-20 08:40] LABS: POTASSIUM 4.5 MEQ/L (3.5-5.1)
[2016-11-20] MEDS: cefTRIAXone INJ 1,000 MG in SODIUM CHLORIDE 0.9% INJ 100 ML IV SCH (08:49)
[2016-11-20] MEDS: PANTOPRAZOLE SOD 20 MG DELAYED RELEASE TAB PO SCH (08:50)
[2016-11-20] MEDS: AZITHROMYCIN 250 MG TAB PO SCH (08:50)
[2016-11-20] MEDS: ASPIRIN 325 MG TAB PO SCH (08:51)
[2016-11-20] MEDS: SERTRALINE HCL 100 MG TAB PO SCH ×2 (08:51→20:25)
[2016-11-20] MEDS: SODIUM CHLORIDE 0.9% FLUSH 10 ML FLUSH IVF PRN (08:54)
[2016-11-20] MEDS ORDERED: predniSONE 50 MG TAB PO SCH (09:00)
[2016-11-20] MEDS ORDERED: PNEUMOCOCCAL POLYVALENT INJ 25 MCG/0.5 ML SYR IM ONE (10:00)
[2016-11-20] MEDS: RESP: ALBUTEROL 1.25 MG/3 ML NEB (PRN) NEB (14:15)
[2016-11-20] MEDS: NICOTINE 14 MG/24 HR PATCH T-DERMAL SCH (17:54)
[2016-11-20] MEDS: ATORVASTATIN 40 MG TAB PO SCH (20:26)
[2016-11-20] MEDS: INSULIN DETEMIR 100 UNITS/ML VIAL SQ SCH (20:26)
[2016-11-20] MEDS: REMOVE OLD PATCH T-DERMAL SCH (20:33)
[2016-11-21] VITALS (11 sets, daily range): BP systolic 106–130; BP diastolic 56–68; PULSE 67–90; RESP 18–25; TEMP 97.4–98.5; O2SAT 84–99
[2016-11-21] MEDS: RESP: ALBUTEROL 2.5 MG/IPRATROPIUM 0.5 MG NEB (SCH) NEB ×4 (02:06→20:57)
[2016-11-21] MEDS: ACETAMINOPHEN 325 MG TAB PO PRN ×3 (05:01→16:50)
[2016-11-21] MEDS: RESP: ALBUTEROL 1.25 MG/3 ML NEB (PRN) NEB (05:04)
[2016-11-21] MEDS: INSULIN ASPART SUPPLEMENTAL SCALE SQ SCH ×4 (05:05→23:04)
[2016-11-21] MEDS: cefTRIAXone INJ 1,000 MG in SODIUM CHLORIDE 0.9% INJ 100 ML IV SCH (09:10)
[2016-11-21] MEDS: AZITHROMYCIN 250 MG TAB PO SCH (09:11)
[2016-11-21] MEDS: ASPIRIN 325 MG TAB PO SCH (09:12)
[2016-11-21] MEDS: SERTRALINE HCL 100 MG TAB PO SCH ×2 (09:12→23:03)
[2016-11-21] MEDS: predniSONE 20 MG TAB PO SCH (09:12)
[2016-11-21] MEDS: PANTOPRAZOLE SOD 20 MG DELAYED RELEASE TAB PO SCH (09:12)
[2016-11-21] MEDS: NICOTINE 14 MG/24 HR PATCH T-DERMAL SCH (09:12)
[2016-11-21] MEDS: SODIUM CHLORIDE 0.9% FLUSH 10 ML FLUSH IVF PRN (09:13)
--- NOTE | 2016-11-21 10:30 | HHI.FPPN ---
Subjective Remarks Patient states she is better today. She is breathing more comfortably. Continues to have little cough which also causes some chest discomfort, but otherwise is better. Denies fever, chills, nausea, vomiting. (Jairo Buchanan MD R2) Objective Vitals Vital Signs Date Time Temp Pulse Resp B/P Pulse Ox O2 Delivery O2 Flow Rate FiO2 11/21/16 10:06 96 Nasal Cannula 1.00 11/21/16 10:00 92 11/21/16 09:59 92 Room Air 11/21/16 08:00 97.4 79 20 106/67 99 11/21/16 06:06 16 11/21/16 04:00 98.0 90 25 119/58 95 11/21/16 02:06 99 Nasal Cannula 2.00 11/21/16 00:00 98.1 87 24 106/56 94 11/20/16 20:00 99.6 95 23 111/58 98 11/20/16 18:27 98.8 86 20 102/50 97 11/20/16 15:03 92 Nasal Cannula 2.00 11/20/16 13:12 98.7 88 20 97/53 94 I/O 11/20/16 11/20/16 11/20/16 11/21/16 11/21/16 11/21/16 07:00 15:00 23:00 07:00 15:00 23:00 Intake Total 240 ml 720 ml 242 ml Output Total 875 ml 600 ml Balance 240 ml -155 ml -358 ml Intake Oral 240 ml 720 ml 242 ml Output Urine Total 875 ml 600 ml # Voids 3 # Bowel Movements 3 2 (Jairo Buchanan MD R2) Result Diagram: 11/20/16 0741 11/20/16 0741 Objective Remarks GENERAL: well appearing, nad SKIN: Warm and dry.multiple healed scabs upper and lower extremities. HEAD: Normocephalic. EYES: No scleral icterus. No injection or drainage. NECK: Supple, trachea midline. No JVD or lymphadenopathy. CARDIOVASCULAR: Regular rate and rhythm without murmurs, gallops, or rubs. RESPIRATORY: Breath sounds equal bilaterally. No accessory muscle use. GASTROINTESTINAL: Abdomen soft, non-tender, nondistended. MUSCULOSKELETAL: No cyanosis, or edema. BACK: Nontender without obvious deformity. (Jairo Buchanan MD R2) A/P Assessment and Plan 36-year-old male with medical history significant for reactive airway disease admitted for pneumonia and worsening respiratory status. Discharge Planning D/C pending clinical improvement. Possibly today. We'll assess need for oxygen with walk test. (Jairo Buchanan MD R2) Attending Attestation Pt. examined and case discussed with resident physician I have read the above note and agree with the assessment/plan as discussed with me I was involved in all medical decision making for this patient Marvin Glez MD (Marvin Glez MD) Problem List: (1) PNA (pneumonia) Status: Acute Plan: - Currenly on Rocephin & Azithromycin 11/19, likely d/c on 5 days of azithromycin Blood cultures negative Clinically improved (2) Reactive airway disease Status: Chronic Plan: Currently breathing comfortably on nasal canula. Lung exam reassuring. - Prednisone 40 mg PO daily protonix for GI protection - albuterol, duonebs alternating - incentive spirometer (3) Tobacco abuse Status: Chronic Plan: Counseled with patient - nicotine patch (4) DM2 (diabetes mellitus, type 2) Status: Chronic Plan: Does not appear well controlled. 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 - Hold home metformin while in hospital - continue acarbose TID - Medium dose sliding scale - Levemir 10 units HS, may increase - Diabetic diet - currently on statin, current smoker, would likely benefit from ASA (added) (5) HLD (hyperlipidemia) Status: Chronic Plan: - Continue statin (6) Depression Status: Chronic Plan: - Continue home sertraline (7) fen Status: Acute Plan: Fluids: Tolerating by mouth Electrolytes: Monitor and replete when necessary Nutrition: diabetic diet DVT prophy: ambulatory, bilat SCDs GI prophylaxis: Protonix while on steroids (Jairo Buchanan MD R2) Problem Qualifiers (1) PNA (pneumonia): Qualified Code: J18.9 - Pneumonia due to infectious organism, unspecified laterality, unspecified part of lung (2) Reactive airway disease: Qualified Code: J45.901 - Reactive airway disease, unspecified asthma severity , with acute exacerbation Jairo Buchanan MD R2 Nov 21, 2016 10:30 Marvin Glez MD Nov 21, 2016 21:30
[2016-11-21 12:20] LABS: BASOPHIL # 0.1 TH/MM3 (0-0.2); BASOPHIL % 0.5 % (0.0-2.0); EOSINOPHIL # 0.4 TH/MM3 (0-0.4); EOSINOPHIL % 3.1 % (0.0-4.0); LYMPH % 11.7 % (9.0-44.0); LYMPHOCYTE # 1.7 TH/MM3 (1.0-4.8); MEAN CELL VOLUME 77.4 FL (80.0-100.0); MEAN CORPUSCULAR HEMOGLOBIN 24.3 PG (27.0-34.0); MEAN CORPUSCULAR HGB CONC 31.3 % (32.0-36.0); MONO % 7.2 % (0.0-8.0); NEUT % 77.5 % (16.0-70.0); PLATELET COUNT 518 TH/MM3 (150-450); RED BLOOD COUNT 3.61 MIL/MM3 (4.00-5.30); RED CELL DISTRIBUTION WIDTH 17.3 % (11.6-17.2); WHITE BLOOD COUNT 14.2 TH/MM3 (4.0-11.0)
[2016-11-21 12:26] LABS: HEMO FLAGS AUTO DIFF
[2016-11-21] MEDS ORDERED: OXYGENTANK NAS.CANULA (12:33)
[2016-11-21 16:51] LABS: PLATELET ESTIMATE SMEAR HIGH (NORMAL); PLATELET MORPHOLOGY NORMAL (NORMAL)
[2016-11-21 16:52] LABS: SCAN/DIFF AUTO DIFF CONFIRMED
[2016-11-21] MEDS ORDERED: INSULIN DETEMIR 100 UNITS/ML VIAL SQ SCH (21:00)
[2016-11-21] MEDS: ATORVASTATIN 40 MG TAB PO SCH (23:03)
[2016-11-21] MEDS: REMOVE OLD PATCH T-DERMAL SCH (23:04)
[2016-11-22] VITALS: BP 116/62; PULSE 67; RESP 20; TEMP 97.7; O2SAT 98
[2016-11-22] MEDS: RESP: ALBUTEROL 2.5 MG/IPRATROPIUM 0.5 MG NEB (SCH) NEB ×2 (03:22→09:58)
[2016-11-22 03:24] VITALS: O2SAT 97
[2016-11-22 04:00] VITALS: BP 98/56; PULSE 68; RESP 20; TEMP 97.6; O2SAT 98
[2016-11-22] MEDS: INSULIN ASPART SUPPLEMENTAL SCALE SQ SCH (06:00)
--- NOTE | 2016-11-22 07:54 | HHI.FPPN ---
Subjective Remarks Patient seen and examined this morning. Her vitals are stable she's afebrile. Currently on 1 L by nasal cannula. Saturating 98%. States she has been walking around the room without oxygen and states she feels well. She denies CP. Eager to go home. Objective Vitals Vital Signs Date Time Temp Pulse Resp B/P Pulse Ox O2 Delivery O2 Flow Rate FiO2 11/22/16 04:00 97.6 68 20 98/56 98 11/22/16 03:24 97 Nasal Cannula 1.00 11/22/16 00:00 97.7 67 20 116/62 98 11/21/16 20:00 97.5 77 19 127/68 98 11/21/16 16:00 98.5 67 18 130/66 99 11/21/16 15:18 98 Nasal Cannula 1.00 11/21/16 12:00 97.7 74 20 109/62 97 11/21/16 10:50 84 21 11/21/16 10:06 96 Nasal Cannula 1.00 11/21/16 10:00 92 11/21/16 09:59 92 Room Air 11/21/16 08:00 97.4 79 20 106/67 99 I/O 11/21/16 11/21/16 11/21/16 11/22/16 11/22/16 11/22/16 07:00 15:00 23:00 07:00 15:00 23:00 Intake Total 242 ml 480 ml 240 ml Output Total 600 ml Balance -358 ml 480 ml 240 ml Intake Oral 242 ml 480 ml 240 ml Output Urine Total 600 ml # Voids 6 3 # Bowel Movements 2 1 Result Diagram: 11/21/16 0958 11/20/16 0741 Imaging Last Impressions Chest X-Ray 11/19/16 0632 Signed Impressions: Service Date/Time: Saturday, November 19, 2016 06:52 - CONCLUSION: Findings most typical of mild failure. Moises Gary MD Objective Remarks GENERAL: well appearing, nad SKIN: Warm and dry.multiple healed scabs upper and lower extremities. HEAD: Normocephalic. EYES: No scleral icterus. No injection or drainage. NECK: Supple, trachea midline. No JVD or lymphadenopathy. CARDIOVASCULAR: Regular rate and rhythm without murmurs, gallops, or rubs. RESPIRATORY: Breath sounds equal bilaterally. No accessory muscle use. GASTROINTESTINAL: Abdomen soft, non-tender, nondistended. MUSCULOSKELETAL: No cyanosis, or edema. BACK: Nontender without obvious deformity. A/P Assessment and Plan 36-year-old male with medical history significant for reactive airway disease admitted for pneumonia and worsening respiratory status. Discharge Planning DC home today with oxygen. will discuss with Dr. Glez Problem List: (1) PNA (pneumonia) Status: Acute Plan: - Currenly on Rocephin & Azithromycin 11/19, likely d/c on 3 days of azithromycin (total of 7 days) Blood cultures negative Clinically improved The patient is a chronic smoker, she would likely benefit from PFTs as an outpatient (2) Reactive airway disease Status: Chronic Plan: Currently breathing comfortably on nasal canula. Lung exam reassuring. - Prednisone 40 mg PO daily (d/c on 2 more days for a total of 6 days of steroids) - protonix for GI protection - albuterol, duonebs alternating - incentive spirometer (3) Tobacco abuse Status: Chronic Plan: Counseled with patient - nicotine patch (4) DM2 (diabetes mellitus, type 2) Status: Chronic Plan: Does not appear well controlled. 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 - Hold home metformin while in hospital - continue acarbose TID - Medium dose sliding scale - Levemir 10 units HS, may increase - Diabetic diet - currently on statin, current smoker, would likely benefit from ASA (added) (5) HLD (hyperlipidemia) Status: Chronic Plan: - Continue statin (6) Depression Status: Chronic Plan: - Continue home sertraline (7) fen Status: Acute Plan: Fluids: Tolerating by mouth Electrolytes: Monitor and replete when necessary Nutrition: diabetic diet DVT prophy: ambulatory, bilat SCDs GI prophylaxis: Protonix while on steroids Problem Qualifiers (1) PNA (pneumonia): Qualified Code: J18.9 - Pneumonia due to infectious organism, unspecified laterality, unspecified part of lung (2) Reactive airway disease: Qualified Code: J45.901 - Reactive airway disease, unspecified asthma severity , with acute exacerbation Guerda Monreal MD R3 November 22, 2016 07:54
[2016-11-22] MEDS ORDERED: AZIT250T3 PO (07:56)
[2016-11-22] MEDS ORDERED: ASPI325T PO (07:56)
[2016-11-22] MEDS ORDERED: PRED20 PO (07:57)
[2016-11-22 08:00] VITALS: BP 117/76; PULSE 80; RESP 16; TEMP 97.2; O2SAT 96
[2016-11-22 08:06] LABS: AUTOMATED NEUTROPHIL # 7.2 TH/MM3 (1.8-7.7); BASOPHIL # 0.1 TH/MM3 (0-0.2); BASOPHIL % 0.9 % (0.0-2.0); EOSINOPHIL # 0.5 TH/MM3 (0-0.4); EOSINOPHIL % 3.9 % (0.0-4.0); LYMPH % 25.7 % (9.0-44.0); LYMPHOCYTE # 3.1 TH/MM3 (1.0-4.8); MEAN CELL VOLUME 77.3 FL (80.0-100.0); MEAN CORPUSCULAR HEMOGLOBIN 24.2 PG (27.0-34.0); MEAN CORPUSCULAR HGB CONC 31.3 % (32.0-36.0); MONO % 9.3 % (0.0-8.0); NEUT % 60.2 % (16.0-70.0); PLATELET COUNT 497 TH/MM3 (150-450); RED BLOOD COUNT 3.75 MIL/MM3 (4.00-5.30); RED CELL DISTRIBUTION WIDTH 17.2 % (11.6-17.2)
[2016-11-22 08:13] LABS: HEMO FLAGS AUTO DIFF
[2016-11-22 08:26] LABS: BICARBONATE 29.2 MEQ/L (21.0-32.0); POTASSIUM 3.4 MEQ/L (3.5-5.1)
[2016-11-22 09:26] LABS: BANDS 1 % (0-6); BASOPHILS 1 % (0-2); CORRECTED NUCLEATED RBC 1 /100 WBC (0-0); EOSINOPHILS 4 % (0-4); MYELOCYTES 1 % (0-0); NEUTROPHIL # MANUAL DIFF 7.3 TH/MM3 (1.8-7.7); PLATELET ESTIMATE SMEAR HIGH (NORMAL); PLATELET MORPHOLOGY NORMAL (NORMAL); POLYS (SEG NEUTROPHILS) 59 % (16-70); SCAN/DIFF FINAL DIFF MANUAL; WBC DIFF SAMPLE 100
[2016-11-22 09:27] LABS: OVALOCYTES 1+ (NORMAL)
[2016-11-22] MEDS: predniSONE 20 MG TAB PO SCH (09:50)
[2016-11-22] MEDS: SERTRALINE HCL 100 MG TAB PO SCH (09:50)
[2016-11-22] MEDS: PANTOPRAZOLE SOD 20 MG DELAYED RELEASE TAB PO SCH (09:50)
[2016-11-22] MEDS: ASPIRIN 325 MG TAB PO SCH (09:50)
[2016-11-22] MEDS: AZITHROMYCIN 250 MG TAB PO SCH (09:50)
[2016-11-22] MEDS: NICOTINE 14 MG/24 HR PATCH T-DERMAL SCH (09:51)
[2016-11-22] MEDS: cefTRIAXone INJ 1,000 MG in SODIUM CHLORIDE 0.9% INJ 100 ML IV SCH (09:51)
[2016-11-22 09:58] VITALS: O2SAT 98
[2016-11-22] MEDS ORDERED: POTASSIUM CHLORIDE 10 MEQ CONTROLLED RELEASE TAB PO ONE (12:30)
--- NOTE | 2016-11-23 06:52 | HHI.DS ---
Discharge Summary Admission Date Nov 19, 2016 at 10:42 Discharge Date: November 22, 2016 Admitting Diagnosis atypical pneumonia, reactive airway disease, sepsis, hypoxia (1) PNA (pneumonia) Plan: - Currenly on Rocephin & Azithromycin 11/19, likely d/c on 3 days of azithromycin (total of 7 days) Blood cultures negative Clinically improved The patient is a chronic smoker, she would likely benefit from PFTs as an outpatient (2) Reactive airway disease Plan: Currently breathing comfortably on nasal canula. Lung exam reassuring. - Prednisone 40 mg PO daily (d/c on 2 more days for a total of 6 days of steroids) - protonix for GI protection - albuterol, duonebs alternating - incentive spirometer (3) Tobacco abuse Plan: Counseled with patient - nicotine patch (4) DM2 (diabetes mellitus, type 2) Plan: Does not appear well controlled. 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 - Hold home metformin while in hospital - continue acarbose TID - Medium dose sliding scale - Levemir 10 units HS, may increase - Diabetic diet - currently on statin, current smoker, would likely benefit from ASA (added) (5) HLD (hyperlipidemia) Plan: - Continue statin (6) Depression Plan: - Continue home sertraline (7) fen Plan: Fluids: Tolerating by mouth Electrolytes: Monitor and replete when necessary Nutrition: diabetic diet DVT prophy: ambulatory, bilat SCDs GI prophylaxis: Protonix while on steroids Brief History 36-year-old female presenting to the emergency department with chief complaint of productive cough with chest pain and shortness of breath for the last 2 weeks. She states that she has a history of reactive airway disease and that she has felt generalized malaise for the last 2 weeks associated with a cough that has gradually been getting worse. The cough has recently become productive of a yellowish sputum and she began having difficulty catching her breath. She also has noticed generalized malaise and fatigue that has been progressively getting worse. She denies any significant fevers or chills, she denies any palpitations, she denies any nausea or vomiting. She does have a history of type 2 diabetes and has noticed that her blood sugars have also been out of control over the last 2 weeks, stating that she has noticed some in the 400s and 500s over the last 5 days. She denies significant polyuria or polydipsia. She denies any tremulousness. She denies any nausea or vomiting, she denies any altered mental status CBC/BMP: 11/22/16 0642 11/22/16 0642 Significant Findings Laboratory Tests Test 11/20/16 11/21/16 11/22/16 07:41 09:58 06:42 White Blood Count 19.6 TH/MM3 14.2 TH/MM3 12.0 TH/MM3 (4.0-11.0) (4.0-11.0) (4.0-11.0) Red Blood Count 3.85 MIL/MM3 3.61 MIL/MM3 3.75 MIL/MM3 (4.00-5.30) (4.00-5.30) (4.00-5.30) Hemoglobin 9.6 GM/DL 8.8 GM/DL 9.1 GM/DL (11.6-15.3) (11.6-15.3) (11.6-15.3) Hematocrit 30.0 % 28.0 % 29.0 % (35.0-46.0) (35.0-46.0) (35.0-46.0) Mean Corpuscular Volume 77.9 FL 77.4 FL 77.3 FL (80.0-100.0) (80.0-100.0) (80.0-100.0) Mean Corpuscular Hemoglobin 25.0 PG 24.3 PG 24.2 PG (27.0-34.0) (27.0-34.0) (27.0-34.0) Red Cell Distribution Width 17.5 % 17.3 % (11.6-17.2) (11.6-17.2) Platelet Count 458 TH/MM3 518 TH/MM3 497 TH/MM3 (150-450) (150-450) (150-450) Mean Platelet Volume 6.5 FL 6.8 FL 6.4 FL (7.0-11.0) (7.0-11.0) (7.0-11.0) Neutrophils (%) (Auto) 88.5 % 77.5 % (16.0-70.0) (16.0-70.0) Lymphocytes (%) (Auto) 5.0 % (9.0-44.0) Neutrophils # (Auto) 17.3 TH/MM3 11.0 TH/MM3 (1.8-7.7) (1.8-7.7) Monocytes # (Auto) 1.3 TH/MM3 1.0 TH/MM3 1.1 TH/MM3 (0-0.9) (0-0.9) (0-0.9) Blood Urea Nitrogen 5 MG/DL (7-18) Random Glucose 148 MG/DL 141 MG/DL (74-106) (74-106) Lactic Acid Level 2.1 mmol/L (0.4-2.0) Mean Corpuscular Hemoglobin 31.3 % 31.3 % Concent (32.0-36.0) (32.0-36.0) Platelet Estimate HIGH (NORMAL) HIGH (NORMAL) Monocytes (%) (Auto) 9.3 % (0.0-8.0) Eosinophils # (Auto) 0.5 TH/MM3 (0-0.4) Myelocytes 1 % (0-0) Nucleated Red Blood Cells 1 /100 WBC (0-0) Ovalocytes 1+ (NORMAL) Potassium Level 3.4 MEQ/L (3.5-5.1) Imaging Last Impressions Chest X-Ray 11/19/16 0632 Signed Impressions: Service Date/Time: Saturday, November 19, 2016 06:52 - CONCLUSION: Findings most typical of mild failure. Moises Gary MD PE at Discharge GENERAL: well appearing, nad SKIN: Warm and dry.multiple healed scabs upper and lower extremities. HEAD: Normocephalic. EYES: No scleral icterus. No injection or drainage. NECK: Supple, trachea midline. No JVD or lymphadenopathy. CARDIOVASCULAR: Regular rate and rhythm without murmurs, gallops, or rubs. RESPIRATORY: Breath sounds equal bilaterally. No accessory muscle use. GASTROINTESTINAL: Abdomen soft, non-tender, nondistended. MUSCULOSKELETAL: No cyanosis, or edema. BACK: Nontender without obvious deformity. Hospital Course The patient was treated for PNA. Course was uncomplicated. She required supplemental O2 by nasal canula. Recommend PFTs as an outpatient. Pt Condition on Discharge: Stable Discharge Disposition: Discharge Home Discharge Instructions DIET: Follow Instructions for: Heart Healthy Diet, Diabetic Diet Activities you can perform: Weight Bearing as Guerda Andres MD R3 November 23, 2016 06:52
[2016-12-14] MEDS ORDERED: ONETTES4 (09:56)
[2017-01-17] MEDS ORDERED: METF1000 PO (17:33)
== END 2016-11-22 12:33 | disposition home or self-care (01) | DRG 871 ==
LOC: NEPC 06:16 → NEDA 10:42 → HOCA 15:22
PROVIDERS: ADMIT Family Medicine; ATTEND Family Medicine
DX: A41.9 Sepsis, unspecified organism (principal); J18.9 Pneumonia, unspecified organism; E11.65 Type 2 diabetes mellitus with hyperglycemia; F17.210 Nicotine dependence, cigarettes, uncomplicated; G43.909 Migraine, unspecified, not intractable, without status migrainosus; E78.5 Hyperlipidemia, unspecified; F32.9 Major depressive disorder, single episode, unspecified; F41.9 Anxiety disorder, unspecified; Z79.4 Long term (current) use of insulin; Z79.84 Long term (current) use of oral hypoglycemic drugs
CPT/HCPCS: 71010; 80048; 82948; 83605; 83880; 85007; 85025; 85027; 85379; 87040; 87804; 90732; 93005; 94150; 94620; 94640; 94664; 94667; 94668; 96361; 96365; 96372; 96375; J0456; J0696; J1815; J1885; J2930; J7030; J7050; J7512; J7613

== ENCOUNTER 2016-12-21 20:06 | Emergency (ER) | payer OTHER ==
[~2016-12-21] VITALS: Ht 167.6 cm; Wt 64.0 kg
[~2016-12-21 20:06] MED LIST changes: +ASPI325T PO; +OXYGENTANK NAS.CANULA; +VENTAER INH
[2016-12-21 20:08] VITALS: BP 119/73; PULSE 88; RESP 18; TEMP 98.9; O2SAT 97
--- NOTE | 2016-12-21 20:15 | PD ---
Physical Exam Date Seen by Provider: December 21, 2016 Time Seen by Provider: 20:13 Narrative 36 yo female here for evaluation for low abdominal pain. Cramping. Taking OTC meds with no relief. pain is severe 05/03. "It's weird because I had surgery to get rid of cramps". Most of the pain on the right lower back. No chest pain. Nauseous and vomiting. No BM issues. No bleeding. Vitals sign stable. Patient awaiting bed placement. Data Data Last Documented VS Vital Signs Date Time Temp Pulse Resp B/P Pulse Ox O2 Delivery O2 Flow Rate FiO2 12/21/16 20:08 98.9 88 18 119/73 97 Room Air [facility] Medical Record Reviewed: Yes Supervised Visit with HONORIO: Alton Steen December 21, 2016 20:15
[2016-12-21 21:30] LABS: BLOOD, URINE TRACE (NEG); CALCIUM OXALATE CRYSTALS,URINE OCC /hpf; COMMENT (UR) CULT NOT INDICATED; CULTURE IF INDICATED CULT NOT INDICATED; GLUCOSE,URINE 1000 mg/dL (NEG); KETONE, URINE TRACE mg/dL (NEG); MUCUS URINE MANY /lpf (OCC); NITRITE,URINE NEG (NEG); SQUAMOUS EPITHELIAL CELL URINE 6 /hpf (0-5); URINE COLOR YELLOW (YELLW/STRAW)
[2016-12-21] MEDS ORDERED: SODIUM CHLOR 0.9% 1000 ML INJ 1,000 ML IV SCH (22:13)
[2016-12-21] MEDS ORDERED: ONDANSETRON HCL 4 MG/2 ML VIAL IVP ONE (22:15)
[2016-12-21] MEDS ORDERED: MORPHINE SULFATE 4 MG/ML INJ IV PUSH PRN (22:15)
[2016-12-21] MEDS ORDERED: SODIUM CHLORIDE 0.9% FLUSH 10 ML FLUSH IV FLUSH PRN (22:15)
--- NOTE | 2016-12-21 22:18 | PD ---
HPI . Right lower quadrant pain Chief Complaint: Abdominal Pain Time Seen by Provider: 22:06 Travel History International Travel<30 days: No Contact w/Intl Traveler<30days: No Traveled to known affect area: No History of Present Illness HPI Patient presents with chief complaint of right lower quadrant pain. Onset was last night. Pain has been getting progressively worse. It is crampy in nature. It is now rated as 10/10. It is associated with nausea. It is exacerbated by walking. PFSH Past Medical History Asthma: Yes Diabetes: Yes Patient Takes Glucophage: Yes Diminished Hearing: No Gastrointestinal Disorders: Yes (HEMMORRHOIDS) Headaches: Yes Respiratory: Yes (ASTHMA) Migraines: Yes Tetanus Vaccination: Unknown Influenza Vaccination: No ?: Not : 4 Para: 4 Tubal Ligation: Yes Social History Alcohol Use: Yes Tobacco Use: Yes (3-4 CIGS/DAY) Substance Use: No Allergies-Medications (Allergen,Severity, Reaction): Coded Allergies: No Known Allergies (Verified , 12/21/16) Reported Meds & Prescriptions Reported Meds & Active Scripts Active Onetouch Ultra Test Strips (Blood Glucose Test Strips) 1 [place] 1 Box .ROUTE TID Aspirin 325 Mg Tab 325 Mg PO DAILY Oxygen tank (Oxygen) 1 Ea Tank 2 Liter YIN.CANDxNA CONTINUOUS Oxygen Concentrator Portable Gaseous 2 L/min via Nasal Cannula Continuous For 99 months Ventolin Hfa 18 GM Inh (Albuterol Sulfate) 90 Mcg/Act Aer 2 Puff INH Q4H PRN Insulin Syringe/0.5ML/30G 30G X 1/2" 0.5 ml (Insulin Syringe/Needle U-100) 1 Mis Mis 1 Box SQ DIRECTED Atorvastatin (Atorvastatin Calcium) 40 Mg Tab 40 Mg PO HS Sertraline (Sertraline HCl) 50 Mg Tab 100 Mg PO BID Acarbose 50 Mg Tab 100 Mg PO TIDAC Take with first bite of meal. Metformin (Metformin HCl) 1,000 Mg Tab 1,000 Mg PO BIDPC With meals Reported Levemir Inj (Insulin Detemir) 1,000 unit/ 10 ML Vial 40 Units SQ AM Do not mix with any other Insulin. Protonix (Pantoprazole Sodium) 20 Mg Tab 40 Mg PO DAILY Review of Systems Except as stated in HPI: all other systems reviewed are Neg General / Constitutional: No: Fever, Chills Gastrointestinal: Positive: Nausea, Abdominal Pain, Loss of Appetite, No: Vomiting, Diarrhea Genitourinary: No: Urgency, Frequency, Dysuria, Discharge, Vaginal Bleeding Physical Exam Narrative GENERAL: Awake and alert. Obvious pain with ambulation. SKIN: Warm and dry. HEAD: Atraumatic. Normocephalic. EYES: Pupils equal and round. ENT: No nasal bleeding or discharge. Mucous membranes pink and moist. NECK: Trachea midline. Neck supple. CARDIOVASCULAR: Regular rate and rhythm. Heart sounds normal. RESPIRATORY: No accessory muscle use. Lungs clear. GASTROINTESTINAL: Right lower quadrant tenderness with guarding. No rebound. Bowel sounds are quiet. MUSCULOSKELETAL: No obvious deformities. No edema. NEUROLOGICAL: Awake and alert. No obvious cranial nerve deficits. Motor grossly within normal limits. Normal speech. PSYCHIATRIC: Appropriate mood and affect; insight and judgment normal. Data Data Last Documented VS Vital Signs Date Time Temp Pulse Resp B/P Pulse Ox O2 Delivery O2 Flow Rate FiO2 12/21/16 20:16 16 12/21/16 20:08 98.9 88 119/73 97 Room Air Orders Ed Urine Pregnancytest Poc (12/21/16 20:32) Urinalysis - C+S If Indicated (12/21/16 21:16) Basic Metabolic Panel (Bmp) (12/21/16 22:13) Complete Blood Count With Diff (12/21/16 22:13) Iv Access Insert/Monitor (12/21/16 22:13) Ecg Monitoring (12/21/16 22:13) Oximetry (12/21/16 22:13) Morphine Inj (Morphine Inj) (12/21/16 22:15) Ondansetron Inj (Zofran Inj) (12/21/16 22:15) Sodium Chlor 0.9% 1000 Ml Inj (Ns 1000 M (12/21/16 22:13) Sodium Chloride 0.9% Flush (Ns Flush) (12/21/16 22:15) Ct Abd/Pel W Iv Contrast(Rout) (12/22/16 ) Iohexol 350 Inj (Omnipaque 350 Inj) (12/22/16 00:18) Labs Laboratory Tests Test 12/21/16 12/21/16 21:15 22:30 Urine Color YELLOW Urine Turbidity HAZY Urine pH 6.0 Urine Specific [place] 1.037 Urine Protein 30 mg/dL Urine Glucose (UA) 1000 mg/dL Urine Ketones TRACE mg/dL Urine Occult Blood TRACE Urine Nitrite NEG Urine Bilirubin NEG Urine Urobilinogen 4.0 MG/DL Urine Leukocyte Esterase NEG Urine RBC 2 /hpf Urine WBC 2 /hpf Urine Squamous Epithelial 6 /hpf Cells Urine Calcium Oxalate Crystals OCC /hpf Urine Mucus MANY /lpf Microscopic Urinalysis Comment CULT NOT INDICATED White Blood Count 13.6 TH/MM3 Red Blood Count 4.43 MIL/MM3 Hemoglobin 10.8 GM/DL Hematocrit 34.5 % Mean Corpuscular Volume 77.8 FL Mean Corpuscular Hemoglobin 24.3 PG Mean Corpuscular Hemoglobin 31.2 % Concent Red Cell Distribution Width 17.1 % Platelet Count 461 TH/MM3 Mean Platelet Volume 6.6 FL Neutrophils (%) (Auto) 77.7 % Lymphocytes (%) (Auto) 12.4 % Monocytes (%) (Auto) 7.9 % Eosinophils (%) (Auto) 1.1 % Basophils (%) (Auto) 0.9 % Neutrophils # (Auto) 10.6 TH/MM3 Lymphocytes # (Auto) 1.7 TH/MM3 Monocytes # (Auto) 1.1 TH/MM3 Eosinophils # (Auto) 0.1 TH/MM3 Basophils # (Auto) 0.1 TH/MM3 CBC Comment DIFF FINAL Differential Comment Sodium Level 138 MEQ/L Potassium Level 3.3 MEQ/L Chloride Level 102 MEQ/L Carbon Dioxide Level 27.3 MEQ/L Anion Gap 9 MEQ/L Blood Urea Nitrogen 9 MG/DL Creatinine 0.59 MG/DL Estimat Glomerular Filtration 115 ML/MIN Rate Random Glucose 237 MG/DL Calcium Level 8.5 MG/DL [facility] Medical Decision Making Medical Screen Exam Complete: Yes Emergency Medical Condition: Yes Differential Diagnosis Differential diagnosis of abdominal pain includes but is not limited to gastritis, pancreatitis, hepatitis, gastroenteritis, gallbladder disease, constipation, urinary retention, UTI, peptic ulcer disease, diverticulitis or appendicitis Narrative Course Patient presents complaining with right lower quadrant abdominal pain. She is tender in the right lower quadrant on examination. CT has been ordered. UA and hCG are negative CBC & BMP Diagram 12/21/16 22:30 CT of her abdomen and pelvis does not show appendicitis or any other acute abdominal process. Diagnosis Primary Impression: Abdominal pain Qualified Code: R10.31 - Right lower quadrant abdominal pain Patient Instructions: Abdominal Pain (ED), General Instructions Med/Other Pt SpecificInfo: Prescription(s) given Scripts Dicyclomine (Bentyl)10 Mg Cap20 Mg PO TID #15 CAP Ref 0 Prov:Liz Baxter MD 12/22/16 Disposition: 01 DISCHARGE HOME Condition: Stable Liz Baxter MD December 21, 2016 22:18
[2016-12-21 22:49] LABS: AUTOMATED NEUTROPHIL # 10.6 TH/MM3 (1.8-7.7); BASOPHIL # 0.1 TH/MM3 (0-0.2); BASOPHIL % 0.9 % (0.0-2.0); EOSINOPHIL # 0.1 TH/MM3 (0-0.4); EOSINOPHIL % 1.1 % (0.0-4.0); HEMATOCRIT 34.5 % (35.0-46.0); HEMO FLAGS DIFF FINAL; LYMPH % 12.4 % (9.0-44.0); LYMPHOCYTE # 1.7 TH/MM3 (1.0-4.8); MEAN CELL VOLUME 77.8 FL (80.0-100.0); MEAN CORPUSCULAR HEMOGLOBIN 24.3 PG (27.0-34.0); MEAN CORPUSCULAR HGB CONC 31.2 % (32.0-36.0); MONO % 7.9 % (0.0-8.0); NEUT % 77.7 % (16.0-70.0); PLATELET COUNT 461 TH/MM3 (150-450); RED BLOOD COUNT 4.43 MIL/MM3 (4.00-5.30); RED CELL DISTRIBUTION WIDTH 17.1 % (11.6-17.2); WHITE BLOOD COUNT 13.6 TH/MM3 (4.0-11.0)
[2016-12-21 23:03] LABS: BICARBONATE 27.3 MEQ/L (21.0-32.0); POTASSIUM 3.3 MEQ/L (3.5-5.1)
[2016-12-22] MEDS ORDERED: IOHEXOL 350 MG/ML 10 ML VIAL (for RAD DIAG) IV ONE (00:18)
[2016-12-22] MEDS ORDERED: DICY10 PO (00:52)
--- NOTE | 2016-12-22 08:25 | RADRPT ---
EXAM DATE/TIME: 12/22/2016 00:08 [place] COMPARISON: No previous studies available for comparison. INDICATIONS : Right lower qaudrant pain. IV CONTRAST: 95 cc Omnipaque 350 (iohexol) IV ORAL CONTRAST: No oral contrast ingested. RADIATION DOSE: 6.49 CTDIvol (mGy) MEDICAL HISTORY : Diabetes mellitus type 2. SURGICAL HISTORY : Tubal ligation. ENCOUNTER: Initial ACUITY: 1 day PAIN SCALE: 6/10 LOCATION: Right lower quadrant TECHNIQUE: Volumetric scanning of the abdomen and pelvis was performed. Using automated exposure control and ad justment of the mA and/or kV according to patient size, radiation dose was kept as low as reasonably achievable to obtain optimal diagnostic quality images. FINDINGS: LOWER LUNGS: The visualized lower lungs are clear. LIVER: 2 small vague low density areas in the liver likely small hemangiomata or cysts. No evidence of bilia ry ductal dilatation. Gallbladder is unremarkable for CT appearance. SPLEEN: Normal size without lesion. PANCREAS: Within normal limits. KIDNEYS: Normal in size and shape. There is no mass, stone or hydronephrosis. ADRENAL GLANDS: Within normal limits. VASCULAR: There is no aortic aneurysm. BOWEL/MESENTERY: The stomach, small bowel, and colon demonstrate no acute abnormality. There is no free intraperitone al air or fluid. ABDOMINAL WALL: Within normal limits. RETROPERITONEUM: There is no lymphadenopathy. BLADDER: No wall thickening or mass. REPRODUCTIVE: Within normal limits. INGUINAL: There is no lymphadenopathy or hernia. MUSCULOSKELETAL: Within normal limits for patient age. CONCLUSION: No acute CT findings in the abdomen or pelvis. Moises Fitzgerald MD on December 22, 2016 at 0:34 Board Certified Radiologist. This report was verified electronically.
[2017-01-17] MEDS ORDERED: METF1000 PO (17:33)
== END 2016-12-22 01:32 | disposition home or self-care (01) ==
LOC: NEPD 20:06
DX: R10.31 Right lower quadrant pain (principal); F17.210 Nicotine dependence, cigarettes, uncomplicated; E11.9 Type 2 diabetes mellitus without complications; Z79.4 Long term (current) use of insulin; Z79.82 Long term (current) use of aspirin
CPT/HCPCS: 74177; 80048; 81001; 84703; 85025; 96361; 96374; 96375; 99285; J2270; J2405; J7030; Q9967

== ENCOUNTER 2017-05-01 09:06 | Emergency (ER) | payer OTHER ==
[~2017-05-01] VITALS: Ht 167.6 cm; Wt 68.0 kg
[~2017-05-01 09:06] MED LIST changes: -BLOO1KIT49; +DICY10 PO
[2017-05-01 09:08] VITALS: BP 112/63; PULSE 82; RESP 13; TEMP 98.1; O2SAT 97
[2017-05-01] MEDS ORDERED: SODIUM CHLOR 0.9% 1000 ML INJ 1,000 ML IV ONE ×2 (09:22→10:45)
--- NOTE | 2017-05-01 09:25 | PD ---
HPI Chief Complaint: Abdominal Pain Time Seen by Provider: 09:22 Travel History International Travel<30 days: No Contact w/Intl Traveler<30days: No Traveled to known affect area: No History of Present Illness HPI C/O 4 DAYS OF RT FLANK PAIN RAD TO RLQ, 03/03, WITH NAUSEA BUT WITHOUT DIARRHEA...NO ALLEVIATING OR AGGRAVATING FACTORS PFSH Past Medical History Asthma: Yes Diabetes: Yes Diminished Hearing: No Gastrointestinal Disorders: Yes (HEMMORRHOIDS) Headaches: Yes Respiratory: Yes (ASTHMA) Migraines: Yes ?: Not LMP: MAR 2017 : 4 Para: 4 Tubal Ligation: Yes Social History Alcohol Use: Yes Tobacco Use: Yes (3-4 CIGS/DAY) Substance Use: No Allergies-Medications (Allergen,Severity, Reaction): Coded Allergies: No Known Allergies (Verified , 12/21/16) Reported Meds & Prescriptions Reported Meds & Active Scripts Active Percocet (Oxycodone-Acetaminophen) 10-325 mg Tab 1 Tab PO Q4H PRN Blank-Colace (Sennosides-Docusate Sodium) 8.6-50 Mg Tab 1 Tab PO BID PRN Bentyl (Dicyclomine HCl) 10 Mg Cap 20 Mg PO TID [employer] Ultra Test Strips (Blood Glucose Test Strips) 1 [place] 1 Box .ROUTE TID Ventolin Hfa 18 GM Inh (Albuterol Sulfate) 90 Mcg/Act Aer 2 Puff INH Q4H PRN Atorvastatin (Atorvastatin Calcium) 40 Mg Tab 40 Mg PO HS Sertraline (Sertraline HCl) 50 Mg Tab 100 Mg PO BID Reported Protonix (Pantoprazole Sodium) 20 Mg Tab 40 Mg PO DAILY Review of Systems Except as stated in HPI: all other systems reviewed are Neg Genitourinary: Positive: Flank Pain Physical Exam Narrative GENERAL: SKIN: Warm and dry. HEAD: Atraumatic. Normocephalic. EYES: Pupils equal and round. No scleral icterus. No injection or drainage. ENT: No nasal bleeding or discharge. Mucous membranes pink and moist. NECK: Trachea midline. No JVD. CARDIOVASCULAR: Regular rate and rhythm. RESPIRATORY: No accessory muscle use. Clear to auscultation. Breath sounds equal bilaterally. GASTROINTESTINAL: Abdomen soft, non-tender, nondistended. Hepatic and splenic margins not palpable. MUSCULOSKELETAL: Extremities without clubbing, cyanosis, or edema. No obvious deformities. NEUROLOGICAL: Awake and alert. No obvious cranial nerve deficits. Motor grossly within normal limits. Five out of 5 muscle strength in the arms and legs. Normal speech. PSYCHIATRIC: Appropriate mood and affect; insight and judgment normal. Data Data Last Documented VS Vital Signs Date Time Temp Pulse Resp B/P (MAP) Pulse Ox O2 Delivery O2 Flow Rate FiO2 05/01/17 11:53 05/01/17 10:23 77 21 100 Room Air 05/01/17 09:08 98.1 Orders Orders Complete Blood Count With Diff (05/01/17:22) Comprehensive Metabolic Panel (05/01/17:22) Urinalysis - C+S If Indicated (05/01/17:22) Ed Urine Pregnancytest Poc (05/01/17:22) Ct Abd/Pel W/O Iv Contrast (05/01/17:22) Ecg Monitoring (05/01/17:22) Iv Access Insert/Monitor (05/01/17:22) Morphine Inj (Morphine Inj) (05/01/17 09:30) Ondansetron Inj (Zofran Inj) (05/01/17 09:30) Sodium Chlor 0.9% 1000 Ml Inj (Ns 1000 M (05/01/17 09:22) Mandatory Outpatient Referral (05/01/17 10:41) Hydromorphone Pf Inj (Dilaudid Pf Inj) (05/01/17 10:45) Sodium Chlor 0.9% 1000 Ml Inj (Ns 1000 M (05/01/17 10:45) Labs Laboratory Tests Test 05/01/17 09:20 05/01/17 09:30 Urine Color YELLOW Urine Turbidity HAZY Urine pH 7.0 Urine Specific [place] 1.042 Urine Protein 30 mg/dL Urine Glucose (UA) 300 mg/dL Urine Ketones NEG mg/dL Urine Occult Blood NEG Urine Nitrite NEG Urine Bilirubin NEG Urine Urobilinogen 2.0 MG/DL Urine Leukocyte Esterase TRACE Urine RBC 1 /hpf Urine WBC 2 /hpf Urine Squamous Epithelial Cells 9 /hpf Urine Bacteria RARE /hpf Urine Hyaline Casts 3 /lpf Urine Mucus MOD /lpf Microscopic Urinalysis Comment CULT NOT INDICATED White Blood Count 14.4 TH/MM3 Red Blood Count 4.78 MIL/MM3 Hemoglobin 12.5 GM/DL Hematocrit 38.6 % Mean Corpuscular Volume 80.8 FL Mean Corpuscular Hemoglobin 26.1 PG Mean Corpuscular Hemoglobin Concent 32.3 % Red Cell Distribution Width 16.9 % Platelet Count 515 TH/MM3 Mean Platelet Volume 6.3 FL Neutrophils (%) (Auto) 77.3 % Lymphocytes (%) (Auto) 13.8 % Monocytes (%) (Auto) 6.7 % Eosinophils (%) (Auto) 1.6 % Basophils (%) (Auto) 0.6 % Neutrophils # (Auto) 11.1 TH/MM3 Lymphocytes # (Auto) 2.0 TH/MM3 Monocytes # (Auto) 1.0 TH/MM3 Eosinophils # (Auto) 0.2 TH/MM3 Basophils # (Auto) 0.1 TH/MM3 CBC Comment DIFF FINAL Differential Comment Blood Urea Nitrogen 8 MG/DL Creatinine 0.69 MG/DL Random Glucose 202 MG/DL Total Protein 8.0 GM/DL Albumin 3.8 GM/DL Calcium Level 9.0 MG/DL Alkaline Phosphatase 115 U/L Aspartate Amino Transf (AST/SGOT) 10 U/L Alanine Aminotransferase (ALT/SGPT) 12 U/L Total Bilirubin 0.2 MG/DL Sodium Level 134 MEQ/L Potassium Level 4.2 MEQ/L Chloride Level 99 MEQ/L Carbon Dioxide Level 28.4 MEQ/L Anion Gap 7 MEQ/L Estimat Glomerular Filtration Rate 95 ML/MIN MDM Medical Decision Making Medical Screen Exam Complete: Yes Emergency Medical Condition: Yes Medical Record Reviewed: Yes Differential Diagnosis UTI V PYELO V APPY V KIDNEY STONE Narrative Course CT FINDINGS WERE D/W FAMILY, ADVISED TO THE NEED FOR [employer] [facility] F/U...PATIENT IS PLANNING ON RETURNING HOME OVER THE NEXT 2 DAYS AND HER PLAN WAS TO SEE HER PCP AND GET REFERRAL TO [facility] [facility] [facility]. I ADIVSIED THAT AN ALTERNATIVE I WILL SETUP MANDATORY REFERRAL TO BE SEEN IN BETWEEN WITH DR IRWIN. SHOULD SHE WANT FOLLOW UP PRIOR TO HER TRAVELING. TERRI VOICED UNDERSTANDING Diagnosis Primary Impression: OVARIAN CYST Additional Impression: POSSIBLE UTERO-CERVICAL MASS VS ENLARGEMENT Referrals: Karla Irwin MD FOR FURTHER EVALUATION AND CARE Scripts Oxycodone-Acetaminophen (Percocet) 10-325 mg Tab 1 TAB PO Q4H Y for PAIN, #28 TAB 0 Refills Prov: Elmer Duarte MD 10/8/17 Sennosides-Docusate Sodium (Blank-Colace) 8.6-50 Mg Tab 1 TAB PO BID Y for Constipation, #20 TAB 0 Refills Prov: Elmer Duarte MD 05/01/17 Disposition: 01 DISCHARGE HOME Condition: Stable Elmer Duarte MD May 01, 2017 09:25
[2017-05-01] MEDS ORDERED: MORPHINE SULFATE 4 MG/ML INJ IV PUSH ONE (09:30)
[2017-05-01] MEDS ORDERED: ONDANSETRON HCL 4 MG/2 ML VIAL IV PUSH ONE (09:30)
[2017-05-01 09:52] LABS: AUTOMATED NEUTROPHIL # 11.1 TH/MM3 (1.8-7.7); BASOPHIL # 0.1 TH/MM3 (0-0.2); BASOPHIL % 0.6 % (0.0-2.0); EOSINOPHIL # 0.2 TH/MM3 (0-0.4); EOSINOPHIL % 1.6 % (0.0-4.0); HEMATOCRIT 38.6 % (35.0-46.0); HEMO FLAGS DIFF FINAL; LYMPH % 13.8 % (9.0-44.0); MEAN CELL VOLUME 80.8 FL (80.0-100.0); MEAN CORPUSCULAR HEMOGLOBIN 26.1 PG (27.0-34.0); MEAN CORPUSCULAR HGB CONC 32.3 % (32.0-36.0); MONO % 6.7 % (0.0-8.0); NEUT % 77.3 % (16.0-70.0); PLATELET COUNT 515 TH/MM3 (150-450); RED BLOOD COUNT 4.78 MIL/MM3 (4.00-5.30); RED CELL DISTRIBUTION WIDTH 16.9 % (11.6-17.2); WHITE BLOOD COUNT 14.4 TH/MM3 (4.0-11.0)
[2017-05-01 09:57] LABS: BACTERIA, URINE RARE /hpf; BLOOD, URINE NEG (NEG); COMMENT (UR) CULT NOT INDICATED; CULTURE IF INDICATED CULT NOT INDICATED; GLUCOSE,URINE 300 mg/dL (NEG); HYALINE CAST, URINE 3 /lpf (RARE); KETONE, URINE NEG (NEG); MUCUS URINE MOD /lpf (OCC); NITRITE,URINE NEG (NEG); SQUAMOUS EPITHELIAL CELL URINE 9 /hpf (0-5); URINE COLOR YELLOW (YELLW/STRAW)
[2017-05-01 10:11] LABS: ANION GAP 7 MEQ/L (5-15); AST (GOT) 10 U/L (15-37); BICARBONATE 28.4 MEQ/L (21.0-32.0); BLOOD UREA NITROGEN 8 MG/DL (7-18); CHLORIDE 99 MEQ/L (98-107); GLOMERULAR FILTRATION RATE 95 ML/MIN (>89); POTASSIUM 4.2 MEQ/L (3.5-5.1); SODIUM (NA) 134 MEQ/L (136-145)
[2017-05-01 10:12] LABS: ALT (GPT) 12 U/L (10-53)
[2017-05-01 10:14] LABS: ALKALINE PHOSPHATASE 115 U/L (45-117); TOTAL BILIRUBIN ADULT 0.2 MG/DL (0.2-1.0)
--- NOTE | 2017-05-01 10:20 | RADRPT ---
EXAM DATE/TIME: 05/01/2017 09:53 [facility] COMPARISON: CT ABDOMEN & PELVIS W CONTRAST, December 22, 2016, 0:08. INDICATIONS : Right lower quadrant pain with nausea. ORAL CONTRAST: No oral contrast ingested. RADIATION DOSE: 13.28 CTDIvol (mGy) MEDICAL HISTORY : None SURGICAL HISTORY : Tubal ligation. ENCOUNTER: Initial ACUITY: 1 day PAIN SCALE: 5/10 LOCATION: Right lower quadrant TECHNIQUE: Volumetric scanning of the abdomen and pelvis was performed. Using automated exposure control and ad justment of the mA and/or kV according to patient size, radiation dose was kept as low as reasonably achievable to obtain optimal diagnostic quality images. DICOM format image data is available electro nically for review and comparison. FINDINGS: The limited portion of the lung base visualized is clear. The appearance of the liver, spleen, pancreas, adrenal glands and kidneys is within normal limits by noncontrast imaging. Graft there is no free intraperitoneal air. No free intraperitoneal fluid is carmen ntified. The abdominal aorta is normal in caliber. There is no retroperitoneal adenopathy. No findings to indicate bowel obstruction are evident by CT. The small bowel is not well assessed due to lack of oral contrast. There is no free fluid within the pelvis. No iliac or inguinal adenopathy is seen. Of concern, the exam demonstrates prominence of the cervix and lower uterine segment. PROGRAM ARRANGER consultatio n would be warranted for further assessment. The examination also demonstrates a 1.7 x 2.5 cm cystic area within the superior margin of the myomet rium. This is nonspecific in appearance by the CT. There appeared to be hemorrhage within this area o n the previous of 12/22/16. Ultrasound evaluation is warranted for more definitive assessment. No iliac or inguinal adenopathy is seen. CONCLUSION: 1. There is prominence of the lower uterine segment and cervix. This area measures 5.8 x 4.4 cm. PROGRAM ARRANGER examination to exclude cervical malignancy is warranted. 2. 1.7 x 2.5 cm low-attenuation area in the myometrium probably representing cystic degeneration of a fibroid. This is nonspecific in appearance by CT. Ultrasound would be of benefit for more definitive assessment. 3. The appendix is visualized and is normal in appearance. No findings to indicate bowel obstruction are evident. Oswaldo Hughes MD on May 01, 2017 at 10:12 Board Certified Radiologist. This report was verified electronically.
[2017-05-01 10:23] VITALS: BP 93/66; PULSE 77; RESP 21; O2SAT 100
[2017-05-01] MEDS ORDERED: PERI8.6T PO (10:41)
[2017-05-01] MEDS ORDERED: PERC10TA27 PO (10:41)
[2017-05-01] MEDS ORDERED: HYDROmorphone HCL PF 1 MG/ML VIAL IV PUSH ONE (10:45)
== END 2017-05-01 13:04 | disposition home or self-care (01) ==
LOC: NEPC 09:06
DX: N83.209 Unspecified ovarian cyst, unspecified side (principal); R93.8 Abnormal findings on diagnostic imaging of other specified body structures; R10.31 Right lower quadrant pain; R11.0 Nausea; E11.9 Type 2 diabetes mellitus without complications; Z72.0 Tobacco use; Z87.09 Personal history of other diseases of the respiratory system; Z87.19 Personal history of other diseases of the digestive system; Z86.69 Personal history of other diseases of the nervous system and sense organs
CPT/HCPCS: 74176; 80053; 81001; 84703; 85025; 96374; 96375; 99285; J1170; J2270; J2405; J7030